=== PATIENT | female | born 1960 | race Caucasian/White ===

== ENCOUNTER 2024-09-22 11:04 | Emergency (ER) | payer OTHER ==
--- OUTSIDE RECORDS SUMMARY | 2024-09-22 11:09 | XMS REPORT | Continuity of Care Document ---
Author Name Unknown Address [address] [facility] [address] [place] [address] [facility] Address [address] 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 Name Role Phone MIGUEL STAUFFER Primary Care Physician RUDOLPH Stokes Attending Clinician Unavailable MIGUEL STAUFFER Attending Clinician Unavailab REGINO Arevalo Attending Clinician Unavailable REGINO ARENAS Attending Clinician Unavailable Regino Arenas MD Attending Clinician [phone] JOHNIE MONACO Attending Clinician Unavailable TRUDI ALLAN Attending Clinician UnavailGretta Rendon RN Attending Clinician [phone] DARLING ZAVALA Attending Clinician Unavailable Christine Collins NP Attending Clinician [phone] Darling Zavala MD Attending Clinician [phone] STEPHANIE OHARA Attending Clinician Unavailable STEPHANIE OHARA Attending Clinician Unavailable Stephanie Ohara NP Attending Clinician [phone] Attending Clinician Unavailable JASON REDD Attending Clinician UnavailBOONE Rojas Attending Clinician Unavailable Odalis Attending Clinician Unavailable JUS FARAH Attending Clinician Unavail able BIBI Attending Clinician Unavailable CLIFFORD Attending Clinician Unavailable DR BRYNN LINDA Attending Clinician Unavailable MELQUIADESMR LUU Attending Clinician UnavailGRACIA Castro Admitting Clinician Unavailable DARLING ZAVALA Admitting Clinician Unavailable Darling Zavala MD Admitting Clinician [phone] MARKMEY DSOUZAE Admitting Clinician Unavailable Odalis Admitting Clinician Unavailable ERICKSON_R Admitting Clinician Unavailable RAN_C Admitting Clinician Unavailable DR BRYNN LINDA Admitting Clinician Unavailable MELQUIADES, MR LUU Admitting Clinician Unavailramon e Payers Payer Name Policy Type Policy Number Effective Date Expirati on Date Source [employer] MP [facility] GOLD 4 [facility] ON/OFF 9 [id number] 2024 00:00:00 AEJODEE W/ KENIA WallsOO [id number] 2024 00:00:00 [facility] [id number] Problems Condition Name Condition Details Condition Category Status Onset Date Resolution Date Last Treatment Date Treating Clinician Comments Source Alcoholic cirrhosis of liver without ascites (multi HCC) Alcoholic cirrhosis of liver without ascites (multi HCC) Disease Active 2023-10 00:00: 00 [facility] Seybold - Externa l Chronic diastolic congestive heart failure (multi HCC) Chronic diastolic congestive heart failure (multi HCC) Disease Active 2023-10 00:00: 00 [facility]ia Seybold - Externa l Hospital discharge follow-up Hospital discharge follow-up Disease Active 2023-10 00:00: 00 [facility] Seybold - Externa l Alcohol use Alcohol use Disease Active 2023-10 00:00: 00 [facility] Seybold - Externa l Other chest pain Other chest pain Disease Active 2023-10 00:00: 00 [facility] Obesity (BMI 30-39.9) Obesity (BMI 30-39.9) Disease Active 2023-10 00:00: 00 [facility] Hypertensi ve emergency Hypertensi ve emergency Disease Active 2023-10 00:00: 00 [facility] Cigarette smoker Cigarette smoker Disease Active 2023-10 00:00: 00 [facility] Other hyperlipid emia Other hyperlipid emia Disease Active 2023-10 00:00: 00 [facility] Type 2 diabetes mellitus without complicati on, without long-term current use of insulin Type 2 diabetes mellitus without complicati on, without long-term current use of insulin Disease Active 2023-10 00:00: 00 [facility] Elevated blood pressure reading Elevated blood pressure reading Disease Active 2023-10 00:00: 00 [facility] Elevated d-dimer Elevated d-dimer Disease Active 2023-10 00:00: 00 [facility] Shortness of breath Shortness of breath Disease Active 2023-10 00:00: 00 [facility] Acute congestive heart failure, unspecifie d heart failure type Acute congestive heart failure, unspecifie d heart failure type Disease Active 2023-10 00:00: 00 [facility] Encounter for screening for human papillomav irus (HPV) Encounter for screening for human papillomav irus (HPV) Disease Active 02-11 00:00: 00 [facility] Burton - Externa brooks Immunodefi ciency due to poorly controlled type 2 diabetes (CMS/HCC) (multi HCC) Immunodefi ciency due to poorly controlled type 2 diabetes (CMS/HCC) (multi HCC) Disease Active 02-11 00:00: 00 [facility] Burton - Externa [facility] Type 2 diabetes mellitus with hyperlipid emia (multi HCC) Type 2 diabetes mellitus with hyperlipid emia (multi HCC) Disease Active 02-05 00:00: 00 [facility]ia Holmold - Externa brooks Primary hypertensi on Primary hypertensi on Disease Active 01-01 00:00: 00 [facility]ia Senayeold - Externa l Hyperlipid emia Hyperlipid emia Disease Active 01-01 00:00: 00 [facility]ia Holmold - Externa brooks Type 2 diabetes mellitus without complicati on, without long-term current use of insulin (multi HCC) Type 2 diabetes mellitus without complicati on, without long-term current use of insulin (multi HCC) Disease Active 01-01 00:00: 00 [facility] guy Class 1 obesity due to excess calories without serious comorbidit y with body mass index (BMI) of 31.0 to 31.9 in adult Class 1 obesity due to excess calories without serious comorbidit y with body mass index (BMI) of 31.0 to 31.9 in adult Disease Active 01-01 00:00: 00 Kenia Josephine guy Diabetes mellitus Diabetes Mellitus Problem Active 02-08 00:00: 00 [facility] Hypertensi ve disorder Hypertensi ve Disorder Problem Active 02-08 00:00: 00 [facility] History of hepatitis C History of Hepatitis C Problem Active 02-08 00:00: 00 [facility] Mixed hyperlipid emia Mixed Hyperlipid emia Problem Active 2021-10 00:00: 00 [facility] Body mass index 30+ - obesity Body Mass Index 30+ - Obesity Problem Active 2021-10 00:00: 00 [facility] Alcoholism Alcoholism Problem Active 2021-10 00:00: 00 [facility] Smoker Smoker Problem Active 2021-10 00:00: 00 [facility] Hypertensi ve disorder Hypertensi ve Disorder Problem Active 2021-10 00:00: 00 [facility] Psoriasis Psoriasis Problem Active 2021-10 00:00: 00 [facility] Arthritis Arthritis Problem Active 2021-10 00:00: 00 [facility] Multiple joint pain Multiple Joint Pain Problem Active 2021-10 00:00: 00 [facility] Misused drugs in past Misused Drugs in past Problem Active 2021-10 00:00: 00 [facility] Chronic insomnia Chronic Insomnia Problem Active 2021-10 00:00: 00 [facility] History of cocaine abuse History of Cocaine Abuse Problem Active 2021-10 00:00: 00 [facility] Chronic hepatitis C Chronic Hepatitis C Problem Active 2021-10 00:00: 00 [facility] Diabetes mellitus Diabetes Mellitus Problem Active 2021-10 00:00: 00 [facility] Tobacco use Tobacco use Disease Active [facility] Burton - Externa l Allergies, Adverse Reactions, Alerts Allergy Name Allergy Type Status Severity Reaction(s) Onset Date Inactive Date Treating Clinician Comments Source NO KNOWN ALLERGIE S Drug Class Active [facility] No Known Drug Allergie s DA Active [facility] Social History Social Habit Start Date Stop Date Quantity Comments Source History of tobacco use Passive smoker [facility] Kenia Burton - External Cigarettes smoked current (pack per day) - Reported 2024-08-22 00:00:00 2024-08-22 00:00:00 [facility] Cigarette pack-years 2024-08-22 00:00:00 2024-08-22 00:00:00 [facility] Alcoholic beverage intake 2024-08-22 00:00:00 2024-08-22 00:00:00 .43 /d [facility] History of Social function 2024-08-22 00:00:00 2024-08-22 00:00:00 [facility] Tobacco use and exposure 2024-02-12 00:00:00 2024-02-12 00:00:00 Smokeless tobacco non-user Kenia Burton - External Alcohol intake 2024-01-02 00:00:00 2024-01-02 00:00:00 .29 /d Kenia Burton - External Sex 2023-10-16 22:18:01 2023-10-16 22:18:01 Female (finding) Kenia Burton - External Sex assigned at 1960 00:00:00 1960 00:00:00 [facility] Smoking Status Start Date Stop Date Source Heavy Tobacco Smoker [facility] Tobacco smoking consumption unknown [facility] Smokes tobacco daily 2024-02-12 00:00:00 Kenia Burton - External Medications Ordered Medication Name Filled Medication Name Start Date Stop Date Current Medication? Ordering Clinician Indication Dosage Frequency Signature (SIG) Comments Components Source cefTRIAXone (ROCEPHIN) 1,000 mg in water for injection, sterile 10 mL IV Push 2023-10 22:00: 00 09-15 22:19 :00 No 1000mg 1,000 mg, Intravenou s, ONCE, 1 dose, On Sat09/15/24 at 1600, 10 mL, Reason for Anti-Infec tive: Documented Infection, Documented Infection Site: Respirator y, Duration of Therapy: Once (ED) [facility] azithromyci n (ZITHROMAX Z-ERNST) 250 mg tablet 2023-10 00:00: 00 Yes [id number] Take 500 mg on day 1 then take 250 mg on days 2-5 [facility] ondansetron 4 mg disintegrat ing tablet 2023-10 00:00: 00 Yes [id number] 4mg Take 1 tablet by mouth every 12 (twelve) hours as needed for Nausea and Vomiting (N/V). [facility] cefdinir 300 mg capsule 2023-10 00:00: 00 09-26 05:59 :00 Yes [id number] 300mg Take 1 capsule by mouth in the morning and 1 capsule in the evening. Do all this for 10 days. [facility] acetaminoph en-codeine 300-30 mg tablet 2023-10 00:00: 00 09-23 05:59 :00 Yes [id number] 1{tbl} Take 1 tablet by mouth every 4 (four) hours as needed for Pain (scale 7-10) (cough, body aches) for up to 7 days. Indication s: acute pain, severe cough, body aches [facility] Cetirizine (ZyrTEC Allergy) 10 MG oral Tablet 2023-10 11:19: 19 Yes 75 10mg QD Take 1 tablet (10 mg total) by mouth daily. Indication s: Hayfever [facility] Burton - Externa l Amlodipine Besylate (NORVASC) 5 MG oral Tablet 2023-10 00:00: 00 Yes [id number] 5mg QD Take 1 tablet (5 mg total) by mouth daily. [facility]ia guy Carvedilol 12.5 MG oral Tablet 2023-10 00:00: 00 Yes [id number] 12.5mg QD Take 1 tablet (12.5 mg total) by mouth every morning and evening take with meals. [facility]ia guy Atorvastati n Calcium 10 MG oral Tablet 2023-10 00:00: 00 Yes [id number] 10mg Take 1 tablet (10 mg total) by mouth at bedtime. [facility] guy Amlodipine Besylate (NORVASC) 5 MG oral Tablet 2023-10 00:00: 00 09-07 00:00 :00 No 5mg QD Take 1 tablet (5 mg total) by mouth daily. [facility] guy amLODIPine (NORVASC) tablet 5 mg 2023-10 15:30: 00 Yes 5mg 5 mg, Oral, DAILY, First dose on 08/23/24 at 0930, Until Discontinu ed, Routine [facility] carvediloL (COREG) tablet 12.5 mg 2023-10 14:00: 00 Yes 12.5mg 12.5 mg, Oral, BID MEALS, First dose (after last modificati on) on 08/23/24 at 0800, Until Discontinu ed, Routine [facility] losartan 100 mg tablet 2023-10 12:29: 03 Yes 100mg Take 1 tablet by mouth in the morning. [facility] cetirizine HCl (ZYRTEC ORAL) 2023-10 12:29: 03 Yes Take by mouth. [facility] metFORMIN 1,000 mg 24 hr tablet 2023-10 12:29: 03 Yes 1000mg Take 1 tablet by mouth in the morning and 1 tablet in the evening. [facility] traZODone 100 mg tablet 2023-10 12:29: 03 Yes 100mg Take 1 tablet by mouth at bedtime. [facility] Fenofibrate 40 mg Tab 2023-10 11:45: 21 08-23 00:00 :00 No Take by mouth. [facility] hydralAZINE (APRESOLINE ) injection 10 mg 2023-10 09:30: 03 08-23 18:29 :03 No 10mg 10 mg, Slow IV Push, Q4HPRN, Starting on 08/23/24 at 0330, Until 08/23/24 at 1229, STAT, DBP=>100; SBP=>160 [facility] traZODone (DESYREL) tablet 100 mg 2023-10 03:00: 00 08-23 18:29 :03 No 100mg 100 mg, Oral, QHS, First dose on 08/22/24 at 2100, Until Discontinu ed, Routine [facility] nicotine (NICODERM) 7 mg/24 hr patch 1 Patch 2023-10 02:30: 00 08-23 18:29 :03 No 1{patch } 1 Patch, Topical, Administer over 24 Hours, Q24H, First dose on 08/22/24 at 2030, Until Discontinu ed, Routine [facility] Carvedilol 12.5 MG oral Tablet 2023-10 00:00: 00 09-07 00:00 :00 No 12.5mg Take 1 tablet (12.5 mg total) by mouth in the morning and 1 tablet (12.5 mg total) in the evening. Take with meals. [facility]ia guy Atorvastati n Calcium 40 MG oral Tablet 2023-10 00:00: 00 09-07 00:00 :00 No 40mg Take 1 tablet (40 mg total) by mouth at bedtime. [facility] guy aspirin chewable tablet 81 mg 2023-10 15:00: 00 08-23 18:29 :03 No 81mg 81 mg, Oral, DAILY, First dose on 08/22/24 at 0900, Until Discontinu ed, Routine [facility] losartan (COZAAR) tablet 100 mg 2023-10 15:00: 00 08-23 18:29 :03 No 100mg 100 mg, Oral, DAILY, First dose on 08/22/24 at 0900, Until Discontinu ed, Routine [facility] fenofibrate micronized (LOFIBRA) capsule 67 mg 2023-10 15:00: 00 08-23 18:29 :03 No 67mg 67 mg, Oral, DAILY, First dose on 08/22/24 at 0900, Until Discontinu ed [facility] enoxaparin (LOVENOX) injection 40 mg 2023-10 15:00: 00 08-23 18:29 :03 No 40mg 40 mg, Subcutaneo us, DAILY, First dose on Sat08/22/24 at 0900, Until Discontinu ed, Routine [facility] carvediloL (COREG) tablet 6.25 mg 2023-10 14:00: 00 08-23 01:38 :19 No 6.25mg 6.25 mg, Oral, BID MEALS, First dose on 08/22/24 at 0800, Until Discontinu ed, Routine [facility] meloxicam (MOBIC) tablet 7.5 mg 2023-10 06:40: 33 08-23 18:29 :03 No 7.5mg [facility] Sliding Scale Insulin - Lispro (HumaLOG) 2023-10 03:00: 00 08-23 18:29 :03 No Subcutaneo us, TID MEALS+HS, First dose on Sat08/21/24 at 2100, Until Discontinu ed, Routine [facility] glucagon HCL injection 1 mg 2023-10 01:28: 02 08-23 18:29 :03 No 1mg [facility] dextrose 50 % in water (D50W) injection 25 mL 2023-10 01:28: 02 08-23 18:29 :03 No 25mL [facility] ondansetron (ZOFRAN (PF)) injection 4 mg 2023-10 01:27: 56 08-23 18:29 :03 No 4mg [facility] nitroglycer in (NITROSTAT) sublingual tablet 0.4 mg 2023-10 01:27: 53 08-23 18:29 :03 No .4mg 0.4 mg, Sublingual , Q5MIN PRN, Starting on Sat08/21/24 at 1927, Until Sat08/23/24 at 1229, Routine, Chest pain [facility] HYDROcodone -acetaminop hen (NORCO 5) tablet 1 tablet 2023-10 01:27: 44 08-23 18:29 :03 No 1{tbl} 1 tablet, Oral, Q6HPRN, Starting on Sat08/21/24 at 1927, Until Sat08/23/24 at 1229, Routine, Pain (scale 4-6) [facility] acetaminoph en (TYLENOL) tablet 650 mg 2023-10 01:27: 39 08-23 18:29 :03 No 650mg 650 mg, Oral, Q6HPRN, Starting on Sat08/21/24 at 1927, Until Sat08/23/24 at 1229, Routine, Pain (scale 1-3), Temp > 38 C [facility] iopamidol (ISOVUE 370-500 mL) injection 75 mL 2023-10 01:15: 00 08-22 01:15 :00 No [id number] 75mL 75 mL, Intravenou s, ONCE, 1 dose, On Sat08/21/24 at 1915, Routine [facility] nitroglycer in (NITROL) 2 % ointment 0.5 Inch 2023-10 00:00: 00 08-22 00:27 :00 No .5[in_u s] 0.5 Inch, Transderma l (Apply To Skin), ONCE, 1 dose, On Sat08/21/24 at 1800, KUNAL [facility] ondansetron (ZOFRAN (PF)) injection 4 mg 2023-10 00:00: 00 08-22 00:27 :00 No 4mg 4 mg, Slow IV Push, ONCE, 1 dose, On Sat08/21/24 at 1800, Administer over 2-5 Minutes, 2 mL [facility] morpHINE (4 mg/mL) injection 4 mg 2023-10 00:00: 00 08-22 00:27 :00 No 4mg 4 mg, Slow IV Push, ONCE, 1 dose, On Sat08/21/24 at 1800, STAT [facility] aspirin tablet 325 mg 2023-10 23:45: 00 08-21 23:49 :00 No 325mg 325 mg, Oral, ONCE, 1 dose, On Sat08/21/24 at 1745, STAT [facility] magnesium sulfate in water 2 gram/50 mL (4 %) infusion 2 g 2023-10 03:45: 00 08-20 15:44 :00 Yes 2g 2 g, IV Piggyback, Administer over 60 Minutes, ONCE, 1 dose, On Sat08/19/24 at 2145, Routine [facility] ondansetron (ZOFRAN (PF)) injection 4 mg 2023-10 03:00: 00 08-20 03:29 :00 No 4mg 4 mg, Slow IV Push, ONCE, 1 dose, On Sat08/19/24 at 2100, Administer over 2-5 Minutes, 2 mL [facility] diphenhydrA MINE (BENADRYL) injection 25 mg 2023-10 03:00: 00 08-20 03:28 :00 No 25mg 25 mg, Slow IV Push, ONCE, 1 dose, On Sat08/19/24 at 2100, STAT [facility] dexamethaso ne sod phos PF injection 10 mg 2023-10 03:00: 00 08-20 03:26 :00 No 10mg 10 mg, Slow IV Push, ONCE, 1 dose, On Sat08/19/24 at 2100, 1 mL [facility] ketorolac (TORADOL) injection 30 mg 2023-10 02:45: 00 08-20 02:01 :00 No 30mg 30 mg, Slow IV Push, ONCE, 1 dose, On Sat08/19/24 at 2045, Routine [facility] carvediloL (COREG) tablet 3.125 mg 2023-10 02:30: 00 08-20 02:06 :00 No 3.125mg 3.125 mg, Oral, ONCE, 1 dose, On Sat08/19/24 at 2030, Routine [facility] Losartan Potassium (COZAAR) 100 MG oral Tablet 2023-10 00:00: 00 Yes [id number] 100mg QD Take 1 tablet (100 mg total) by mouth daily. [facility] guy Carvedilol 3.125 MG oral Tablet 2023-10 00:00: 00 09-07 00:00 :00 No 3.125mg QD Take 1 tablet (3.125 mg total) by mouth every morning and evening take with meals. [facility] guy carvediloL 3.125 mg tablet 2023-10 00:00: 00 08-23 00:00 :00 No [id number] 3.125mg Take 1 tablet by mouth in the morning and 1 tablet in the evening. Take with meals. Do all this for 30 days. [facility] Cetirizine (ZyrTEC Allergy) 10 MG oral Tablet 2023-10 09:43: 41 Yes 75 10mg QD Take 1 tablet (10 mg total) by mouth daily. Indication s: Hayfever [facility] guy Atorvastati n Calcium 10 MG oral Tablet 2023-10 09:12: 28 08-17 00:00 :00 No [id number] 10mg QD Take 1 tablet (10 mg total) by mouth daily. [facility] guy Losartan Potassium (COZAAR) 50 MG oral Tablet 2023-10 00:00: 00 Yes [id number] 50mg QD Take 1 tablet (50 mg total) by mouth daily. [facility] guy FLUTICASONE PROPIONATE, NASAL, 50 MCG/ACT nasal Suspension 2023-10 00:00: 00 Yes [id number] 50ug QD Use 1 spray (50 mcg total) in each nostril daily. [facility] guy predniSONE (DELTASONE) 10 MG oral tablet 2023-10 00:00: 00 09-07 00:00 :00 No [id number] 10mg QD Take 1 tablet (10 mg total) by mouth daily. [facility] guy Meloxicam 15 MG oral Tablet 2023-10 00:00: 00 Yes [id number] 15mg QD Take 1 tablet (15 mg total) by mouth daily as needed for pain. [facility] guy Trazodone HCl 50 MG oral Tablet 2023-10 00:00: 00 Yes [id number] 50mg QD Take 1 tablet (50 mg total) by mouth nightly. [facility] guy Meloxicam 15 MG oral Tablet 2023-10 00:00: 00 Yes [id number] 15mg QD Take 1 tablet (15 mg total) by mouth daily as needed for pain. [facility] guy FENOFIBRATE MICRONIZED 54 MG oral Tablet 2023-10 00:00: 00 09-07 00:00 :00 No [id number] 54mg QD Take 1 tablet (54 mg total) by mouth daily. [facility] guy Liraglutide 18 MG/3ML subcutaneou s Solution Pen-injecto r 808 00:00: 00 08-17 00:00 :00 No [id number] .6mg QD Inject 0.6 mg into the skin daily After one week at the 0.6 mg once daily dosage, increase the dosage to 1.2 mg injected subcutaneo usly once daily.. [facility] guy Meloxicam 15 MG oral Tablet 05-06 15:36: 30 05-06 00:00 :00 No 15mg QD Take 1 tablet (15 mg total) by mouth daily. [facility] guy Atorvastati n Calcium 10 MG oral Tablet 05-06 15:14: 56 Yes [id number] 10mg QD Take 1 tablet (10 mg total) by mouth daily. [facility] guy Meloxicam 15 MG oral Tablet 05-06 00:00: 00 Yes [id number] 15mg QD Take 1 tablet (15 mg total) by mouth daily. [facility] guy Trulicity 1.5 MG/0.5ML subcutaneou s Solution Pen-injecto r 05-06 00:00: 00 Yes [id number] 1.5mg Q1W Inject 1.5 mg into the skin once a week. [facility] guy Naproxen 500 MG oral Tablet 04-16 00:00: 00 05-06 00:00 :00 No 500mg Q.5D Take 1 tablet (500 mg total) by mouth 2 times daily. [facility] guy Metformin HCl ER 500 MG oral TABLET SR 24 HR 03-27 00:00: 00 Yes [id number] 1000mg Q.5D Take 2 tablets (1,000 mg total) by mouth 2 times daily Please take with food. [facility] guy Metformin HCl ER 500 MG oral TABLET SR 24 HR 03-27 00:00: 00 Yes [id number] 1000mg Q.5D Take 2 tablets (1,000 mg total) by mouth 2 times daily Please take with food. [facility] guy Metformin HCl ER 500 MG oral TABLET SR 24 HR 03-27 00:00: 00 Yes [id number] 1000mg Q.5D Take 2 tablets (1,000 mg total) by mouth 2 times daily Please take with food. [facility] guy Lisinopril 20 MG oral Tablet 03-27 00:00: 00 08-17 00:00 :00 No [id number] 20mg QD Take 1 tablet (20 mg total) by mouth daily. [facility] guy Trazodone HCl 50 MG oral Tablet 02-14 00:00: 00 Yes TAKE 1 TABLET BY MOUTH NIGHTLY. NO DRIVING WHILE ON THIS MEDICATION . [facility] guy Nicotine 7 MG/24HR transdermal PATCH 24 HR 02-11 00:00: 00 05-06 00:00 :00 No [id number] 1{patch } Place 1 patch onto the skin every 24 hours. [facility] guy Continuous Blood Gluc Sensor ([employer] G7 Sensor) does not apply Misc 01-19 00:00: 00 Yes [id number] Check blood sugars twice a day. [facility] guy Metformin HCl ER 500 MG oral TABLET SR 24 HR 01-15 00:00: 00 Yes [id number] 1000mg Take 2 tablets (1,000 mg total) by mouth 2 times daily Please take with food. [facility] guy Trulicity 0.75 MG/0.5ML subcutaneou s Solution Pen-injecto r 01-15 00:00: 00 05-06 00:00 :00 No [id number] .75mg Q1W Inject 0.75 mg into the skin once a week. [facility] guy Trazodone HCl 50 MG oral Tablet 01-15 00:00: 00 02-11 00:00 :00 No [id number] 50mg Take 1 tablet (50 mg total) by mouth nightly No driving on medication . [facility] guy FENOFIBRATE MICRONIZED 54 MG oral Tablet 01-07 00:00: 00 Yes [id number] 54mg QD Take 1 tablet (54 mg total) by mouth daily. [facility] guy Metformin HCl ER 500 MG oral TABLET SR 24 HR 01-01 08:22: 37 01-01 00:00 :00 No 500mg Take 1 tablet (500 mg total) by mouth daily (with breakfast) . [facility] guy Lisinopril 20 MG oral Tablet 01-01 08:22: 37 01-01 00:00 :00 No 20mg Take 1 tablet (20 mg total) by mouth daily. [facility] guy Meloxicam 15 MG oral Tablet 01-01 08:03: 14 Yes 15mg Take 1 tablet (15 mg total) by mouth daily. [facility] guy Atorvastati n Calcium 10 MG oral Tablet 01-01 08:03: 14 Yes [id number] 10mg Take 1 tablet (10 mg total) by mouth daily. [facility] guy Metformin HCl ER 500 MG oral TABLET SR 24 HR 01-01 00:00: 00 Yes [id number] 500mg Take 1 tablet (500 mg total) by mouth daily (with breakfast) . [facility] guy Lisinopril 20 MG oral Tablet 01-01 00:00: 00 Yes [id number] 20mg Take 1 tablet (20 mg total) by mouth daily. [facility] guy Clobetasol Propionate 0.05 % apply externally Ointment 01-01 00:00: 00 01-16 04:59 :00 No [id number] 1{appli cation} Apply 1 Applicatio n topically 2 times daily for 14 days. [facility] guy clobetasol 0.05 % topical cream APPLY A THIN LAYER TO THE AFFECTED AREA(S) TWO TIMES DAILY clobetasol 0.05 % topical cream APPLY A THIN LAYER TO THE AFFECTED AREA(S) TWO TIMES DAILY No clobetasol 0.05 % topical cream APPLY A THIN LAYER TO THE AFFECTED AREA(S) TWO TIMES DAILY [facility] nifedipine ER 90 mg tablet,exte nded release Take 1 tablet every day by oral route. nifedipine ER 90 mg tablet,exte nded release Take 1 tablet every day by oral route. No nifedipine ER 90 mg tablet,ext ended release Take 1 tablet every day by oral route. [facility] clobetasol 0.05 % topical cream APPLY A THIN LAYER TO THE AFFECTED AREA(S) TWO TIMES DAILY clobetasol 0.05 % topical cream APPLY A THIN LAYER TO THE AFFECTED AREA(S) TWO TIMES DAILY No clobetasol 0.05 % topical cream APPLY A THIN LAYER TO THE AFFECTED AREA(S) TWO TIMES DAILY [facility] nifedipine ER 90 mg tablet,exte nded release Take 1 tablet every day by oral route. nifedipine ER 90 mg tablet,exte nded release Take 1 tablet every day by oral route. No nifedipine ER 90 mg tablet,ext ended release Take 1 tablet every day by oral route. [facility] clobetasol 0.05 % topical cream APPLY A THIN LAYER TO THE AFFECTED AREA(S) TWO TIMES DAILY clobetasol 0.05 % topical cream APPLY A THIN LAYER TO THE AFFECTED AREA(S) TWO TIMES DAILY No clobetasol 0.05 % topical cream APPLY A THIN LAYER TO THE AFFECTED AREA(S) TWO TIMES DAILY [facility] nifedipine ER 90 mg tablet,exte nded release Take 1 tablet by mouth once daily nifedipine ER 90 mg tablet,exte nded release Take 1 tablet by mouth once daily No nifedipine ER 90 mg tablet,ext ended release Take 1 tablet by mouth once daily [facility] sulfamethox azole 800 mg-trimetho prim 160 mg tablet Take 1 tablet every 12 hours by oral route for 7 days. sulfamethox azole 800 mg-trimetho prim 160 mg tablet Take 1 tablet every 12 hours by oral route for 7 days. No 1 Q12H sulfametho xazole 800 mg-trimeth oprim 160 mg tablet Take 1 tablet every 12 hours by oral route for 7 days. [facility] clobetasol 0.05 % topical cream APPLY A THIN LAYER TO THE AFFECTED AREA(S) TWO TIMES DAILY clobetasol 0.05 % topical cream APPLY A THIN LAYER TO THE AFFECTED AREA(S) TWO TIMES DAILY No clobetasol 0.05 % topical cream APPLY A THIN LAYER TO THE AFFECTED AREA(S) TWO TIMES DAILY [facility] nifedipine ER 90 mg tablet,exte nded release Take 1 tablet by mouth once daily nifedipine ER 90 mg tablet,exte nded release Take 1 tablet by mouth once daily No nifedipine ER 90 mg tablet,ext ended release Take 1 tablet by mouth once daily [facility] sulfamethox azole 800 mg-trimetho prim 160 mg tablet Take 1 tablet every 12 hours by oral route for 7 days. sulfamethox azole 800 mg-trimetho prim 160 mg tablet Take 1 tablet every 12 hours by oral route for 7 days. No 1 Q12H sulfametho xazole 800 mg-trimeth oprim 160 mg tablet Take 1 tablet every 12 hours by oral route for 7 days. [facility] atorvastati n 10 mg tablet Take 1 tablet every day by oral route. atorvastati n 10 mg tablet Take 1 tablet every day by oral route. No atorvastat in 10 mg tablet Take 1 tablet every day by oral route. [facility] GaviLyte-G 236 gram-22.74 gram-6.74 gram-5.86 gram oral solution Take 2000 mL twice a day by oral route for 1 day. GaviLyte-G 236 gram-22.74 gram-6.74 gram-5.86 gram oral solution Take 2000 mL twice a day by oral route for 1 day. No 2000mL BID GaviLyte-G 236 gram-22.74 gram-6.74 gram-5.86 gram oral solution Take 2000 mL twice a day by oral route for 1 day. [facility] clobetasol 0.05 % topical cream APPLY A THIN LAYER TO THE AFFECTED AREA(S) TWO TIMES DAILY clobetasol 0.05 % topical cream APPLY A THIN LAYER TO THE AFFECTED AREA(S) TWO TIMES DAILY No clobetasol 0.05 % topical cream APPLY A THIN LAYER TO THE AFFECTED AREA(S) TWO TIMES DAILY [facility] GaviLyte-G 236 gram-22.74 gram-6.74 gram-5.86 gram oral solution TAKE 2000 ML BY MOUTH DIRECTED TWICE DAILY FOR 1 DAY GaviLyte-G 236 gram-22.74 gram-6.74 gram-5.86 gram oral solution TAKE 2000 ML BY MOUTH DIRECTED TWICE DAILY FOR 1 DAY No GaviLyte-G 236 gram-22.74 gram-6.74 gram-5.86 gram oral solution TAKE 2000 ML BY MOUTH DIRECTED TWICE DAILY FOR 1 DAY [facility] lisinopril 20 mg tablet Take 1 tablet every day by oral route. lisinopril 20 mg tablet Take 1 tablet every day by oral route. No 1 Q1D lisinopril 20 mg tablet Take 1 tablet every day by oral route. [facility] metformin ER 500 mg tablet,exte nded release 24 hr Take 1 tablet twice a day by oral route. metformin ER 500 mg tablet,exte nded release 24 hr Take 1 tablet twice a day by oral route. No 1 BID metformin ER 500 mg tablet,ext ended release 24 hr Take 1 tablet twice a day by oral route. [facility] nifedipine ER 90 mg tablet,exte nded release TAKE 1 TABLET BY MOUTH ONCE DAILY nifedipine ER 90 mg tablet,exte nded release TAKE 1 TABLET BY MOUTH ONCE DAILY No nifedipine ER 90 mg tablet,ext ended release TAKE 1 TABLET BY MOUTH ONCE DAILY [facility] Chantix Starting Month Box 0.5 mg (11)-1 mg (42) tablets in dose pack As directed on Dose-Pack Chantix Starting Month Box 0.5 mg (11)-1 mg (42) tablets in dose pack As directed on Dose-Pack No Chantix Starting Month Box 0.5 mg (11)-1 mg (42) tablets in dose pack As directed on Dose-Pack [facility] clobetasol 0.05 % topical cream APPLY A THIN LAYER TO THE AFFECTED AREA(S) BY TOPICAL ROUTE 2 TIMES PER DAY clobetasol 0.05 % topical cream APPLY A THIN LAYER TO THE AFFECTED AREA(S) BY TOPICAL ROUTE 2 TIMES PER DAY No clobetasol 0.05 % topical cream APPLY A THIN LAYER TO THE AFFECTED AREA(S) BY TOPICAL ROUTE 2 TIMES PER DAY [facility] meloxicam meloxicam No meloxicam [facility] meloxicam 15 mg tablet Take 1 tablet every day by oral route. meloxicam 15 mg tablet Take 1 tablet every day by oral route. No 1 Q1D meloxicam 15 mg tablet Take 1 tablet every day by oral route. [facility] nifedipine ER 90 mg tablet,exte nded release Take 1 tablet every day by oral route. nifedipine ER 90 mg tablet,exte nded release Take 1 tablet every day by oral route. No 1 Q1D nifedipine ER 90 mg tablet,ext ended release Take 1 tablet every day by oral route. [facility] atorvastati n 10 mg tablet Take 1 tablet every day by oral route. atorvastati n 10 mg tablet Take 1 tablet every day by oral route. No 1 Q1D atorvastat in 10 mg tablet Take 1 tablet every day by oral route. [facility] Chantix Starting Month Box 0.5 mg (11)-1 mg (42) tablets in dose pack As directed on Dose-Pack Chantix Starting Month Box 0.5 mg (11)-1 mg (42) tablets in dose pack As directed on Dose-Pack No Chantix Starting Month Box 0.5 mg (11)-1 mg (42) tablets in dose pack As directed on Dose-Pack [facility] clobetasol 0.05 % topical cream APPLY A THIN LAYER TO THE AFFECTED AREA(S) TWO TIMES DAILY clobetasol 0.05 % topical cream APPLY A THIN LAYER TO THE AFFECTED AREA(S) TWO TIMES DAILY No clobetasol 0.05 % topical cream APPLY A THIN LAYER TO THE AFFECTED AREA(S) TWO TIMES DAILY [facility] meloxicam 15 mg tablet Take 1 tablet every day by oral route. meloxicam 15 mg tablet Take 1 tablet every day by oral route. No meloxicam 15 mg tablet Take 1 tablet every day by oral route. [facility] metformin ER 500 mg tablet,exte nded release 24 hr Take 1 tablet twice a day by oral route. metformin ER 500 mg tablet,exte nded release 24 hr Take 1 tablet twice a day by oral route. No 1 BID metformin ER 500 mg tablet,ext ended release 24 hr Take 1 tablet twice a day by oral route. [facility] nifedipine ER 90 mg tablet,exte nded release Take 1 tablet every day by oral route. nifedipine ER 90 mg tablet,exte nded release Take 1 tablet every day by oral route. No nifedipine ER 90 mg tablet,ext ended release Take 1 tablet every day by oral route. [facility] metformin metformin No metformin [facility] Program atorvastati n 10 mg tablet Take 1 tablet every day by oral route. atorvastati n 10 mg tablet Take 1 tablet every day by oral route. No atorvastat in 10 mg tablet Take 1 tablet every day by oral route. [facility] clobetasol 0.05 % topical cream APPLY A THIN LAYER TO THE AFFECTED AREA(S) TWO TIMES DAILY clobetasol 0.05 % topical cream APPLY A THIN LAYER TO THE AFFECTED AREA(S) TWO TIMES DAILY No clobetasol 0.05 % topical cream APPLY A THIN LAYER TO THE AFFECTED AREA(S) TWO TIMES DAILY [facility] meloxicam 15 mg tablet Take 1 tablet every day by oral route. meloxicam 15 mg tablet Take 1 tablet every day by oral route. No meloxicam 15 mg tablet Take 1 tablet every day by oral route. [facility] nifedipine ER 90 mg tablet,exte nded release Take 1 tablet every day by oral route. nifedipine ER 90 mg tablet,exte nded release Take 1 tablet every day by oral route. No nifedipine ER 90 mg tablet,ext ended release Take 1 tablet every day by oral route. [facility] nifedipine nifedipine No nifedipine [facility] Program Immunizations Ordered Immunization Name Filled Immunization Name Date Status Comments Source SARS-COV-2 COVID-19 PFIZER VACCINE 2020-12-20 00:00:00 Completed [facility] SARS-COV-2 COVID-19 PFIZER VACCINE 2020-11-29 00:00:00 Completed [facility] Influenza Virus Vaccine, Quad, Egg Free Unknown Completed Kenia Seybold - External Influenza Virus Vaccine, Quad, Egg Free Unknown Completed Kenia Seybold - External Influenza Virus Vaccine, Quad, Egg Free Unknown Completed Kenia Seybold - External Influenza Virus Vaccine, Quad, Egg Free Unknown Completed Kenia Seybold - External Influenza Virus Vaccine, Quad, Egg Free Unknown Completed Kenia Seybold - External Vital Signs Vital Name Observation Time Observation Value Comments S skinny Heart rate 2024-09-15 22:08:00 85 /min [facility] Respiratory rate 2024-09-15 22:08:00 18 /min [facility] Oxygen saturation in Arterial blood by Pulse oximetry 2024-09-15 22:08:00 98 /min [facility] Systolic blood pressure 2024-09-15 21:39:00 181 mm[Hg] [facility] Diastolic blood pressure 2024-09-15 21:39:00 81 mm[Hg] [facility] Body temperature 2024-09-15 19:53:00 37.11 Heaven [facility] Body height 2024-09-15 19:53:00 157.5 cm [facility] Body weight 2024-09-15 19:53:00 86.864 kg [facility] BMI 2024-09-15 19:53:00 35.03 kg/m2 [facility] Systolic blood pressure 2024-09-07 17:11:00 136 mm[Hg] Kenia Seybo ld - External Diastolic blood pressure 2024-09-07 17:11:00 62 mm[Hg] Kenia Seybo ld - External Heart rate 2024-09-07 17:11:00 78 /min Kel y Seybold - External Body temperature 2024-09-07 17:11:00 36.67 Heaven Kenia Seybold - External Respiratory rate 2024-09-07 17:11:00 18 /min Kenia Mahoneyybold - External Body height 2024-09-07 17:11:00 157.5 cm Tierney ey Seybold - External Body weight 2024-09-07 17:11:00 86.637 kg Tierney ey Seybold - External BMI 2024-09-07 17:11:00 34.93 kg/m2 Tierney ey Seybold - External Oxygen saturation in Arterial blood by Pulse oximetry 2024-09-07 17:11:00 98 /min Kenia Mahoneyybo ld - External Systolic blood pressure 2024-08-23 17:13:00 154 mm[Hg] [facility] Diastolic blood pressure 2024-08-23 17:13:00 84 mm[Hg] [facility] Heart rate 2024-08-23 17:13:00 74 /min [facility] Body temperature 2024-08-23 17:13:00 36.06 Heaven [facility] Respiratory rate 2024-08-23 17:13:00 16 /min [facility] Oxygen saturation in Arterial blood by Pulse oximetry 2024-08-23 17:13:00 96 /min [facility] Body weight 2024-08-23 09:20:00 84.46 kg [facility] BMI 2024-08-23 09:20:00 33.51 kg/m2 [facility] Body height 2024-08-22 03:00:00 158.8 cm [facility] Systolic blood pressure 2024-08-20 04:20:00 170 mm[Hg] [facility] Diastolic blood pressure 2024-08-20 04:20:00 80 mm[Hg] [facility] Heart rate 2024-08-20 04:20:00 79 /min [facility] Body temperature 2024-08-20 04:20:00 36.67 Heaven [facility] Respiratory rate 2024-08-20 04:20:00 20 /min [facility] Oxygen saturation in Arterial blood by Pulse oximetry 2024-08-20 04:20:00 96 /min [facility] Body height 2024-08-20 00:32:00 157.5 cm [facility] Body weight 2024-08-20 00:32:00 83.915 kg [facility] BMI 2024-08-20 00:32:00 33.84 kg/m2 [facility] Systolic blood pressure 2024-08-17 15:13:00 160 mm[Hg] Kenia Seybo ld - External Diastolic blood pressure 2024-08-17 15:13:00 90 mm[Hg] Kenia Seybo ld - External Heart rate 2024-08-17 15:06:00 86 /min Kelse y Seybold - External Body temperature 2024-08-17 15:06:00 36.33 Heaven Kenia Seybold - External Respiratory rate 2024-08-17 15:06:00 18 /min Kenia Seybold - External Body height 2024-08-17 15:06:00 157.5 cm Tierney ey Seybold - External Body weight 2024-08-17 15:06:00 84.369 kg Tierney ey Seybold - External BMI 2024-08-17 15:06:00 34.02 kg/m2 Tierney ey Seybold - External Oxygen saturation in Arterial blood by Pulse oximetry 2024-08-17 15:06:00 98 /min Kenia Seybo ld - External Body weight 2024-05-06 20:09:00 83.008 kg Tierney ey Seybold - External BMI 2024-05-06 20:09:00 33.47 kg/m2 Tierney ey Seybold - External Oxygen saturation in Arterial blood by Pulse oximetry 2024-05-06 20:09:00 98 /min Kenia Seybo ld - External Systolic blood pressure 2024-05-06 20:09:00 128 mm[Hg] Kenia Seybo ld - External Diastolic blood pressure 2024-05-06 20:09:00 68 mm[Hg] Kenia Seybo ld - External Heart rate 2024-05-06 20:09:00 84 /min Kelse y Seybold - External Body temperature 2024-05-06 20:09:00 36.78 Heaven Kenia Seybold - External Respiratory rate 2024-05-06 20:09:00 18 /min Kenia Seybold - External Body height 2024-05-06 20:09:00 157.5 cm Tierney ey Seybold - External Systolic blood pressure 2024-02-12 14:29:00 118 mm[Hg] Kenia Seybo ld - External Diastolic blood pressure 2024-02-12 14:29:00 64 mm[Hg] Kenia Seybo ld - External Heart rate 2024-02-12 14:29:00 82 /min Kelse y Seybold - External Body temperature 2024-02-12 14:29:00 36.89 Heaven Kenia Seybold - External Respiratory rate 2024-02-12 14:29:00 16 /min Kenia Seybold - External Body height 2024-02-12 14:29:00 157.5 cm Tierney ey Seybold - External Body weight 2024-02-12 14:29:00 77.565 kg Tierney ey Seybold - External BMI 2024-02-12 14:29:00 31.28 kg/m2 Tierney ey Seybold - External Oxygen saturation in Arterial blood by Pulse oximetry 2024-02-12 14:29:00 98 /min Kenia Seybo ld - External Systolic blood pressure 2024-01-02 12:56:00 120 mm[Hg] Kenia Seybo ld - External Diastolic blood pressure 2024-01-02 12:56:00 60 mm[Hg] Kenia Seybo ld - External Heart rate 2024-01-02 12:56:00 92 /min Ziggy quiñonez Seybold - External Body temperature 2024-01-02 12:56:00 35.72 Heaven Kenia Seybold - External Respiratory rate 2024-01-02 12:56:00 15 /min Kenia Mahoneyybold - External Body height 2024-01-02 12:56:00 157.5 cm Tierney hearn Seybold - External Body weight 2024-01-02 12:56:00 78.019 kg Tierney ey Seybold - External BMI 2024-01-02 12:56:00 31.46 kg/m2 Tierney ey Seybold - External BP Diastolic 2023-02-25 00:00:00 84 mm[Hg] [facility] Height 2023-02-25 00:00:00 62 [in_i] [facility] BMI (Body Mass Index) 2023-02-25 00:00:00 32.9 kg/m2 [facility] BP Systolic 2023-02-25 00:00:00 144 mm[Hg] [facility] Body Weight 2023-02-25 00:00:00 2880 [oz_av] [facility] BP Diastolic 2023-02-08 00:00:00 79 mm[Hg] [place] [facility] Height 2023-02-08 00:00:00 62 [in_i] [facility] [facility] BMI (Body Mass Index) 2023-02-08 00:00:00 32.5 kg/m2 [facility] BP Systolic 2023-02-08 00:00:00 147 mm[Hg] [facility] Body Weight 2023-02-08 00:00:00 177.8 [lb_av] [place] [facility] BP Diastolic 2022-11-27 00:00:00 80 mm[Hg] [facility] Height 2022-11-27 00:00:00 62 [in_i] [facility] BMI (Body Mass Index) 2022-11-27 00:00:00 32.4 kg/m2 [facility] BP Systolic 2022-11-27 00:00:00 132 mm[Hg] [facility] Body Weight 2022-11-27 00:00:00 2832 [oz_av] [facility] BP Diastolic 2022-09-11 00:00:00 72 mm[Hg] [facility] Height 2022-09-11 00:00:00 62 [in_i] [facility] BMI (Body Mass Index) 2022-09-11 00:00:00 30.4 kg/m2 [facility] BP Systolic 2022-09-11 00:00:00 154 mm[Hg] [facility] Body Weight 2022-09-11 00:00:00 2656 [oz_av] [facility] BP Diastolic 2022-09-04 00:00:00 78 mm[Hg] [facility] Height 2022-09-04 00:00:00 62 [in_i] [facility] BMI (Body Mass Index) 2022-09-04 00:00:00 30.5 kg/m2 [facility] BP Systolic 2022-09-04 00:00:00 138 mm[Hg] [facility] Body Weight 2022-09-04 00:00:00 2672 [oz_av] [facility] BP Diastolic 2022-08-27 00:00:00 76 mm[Hg] [facility] Height 2022-08-27 00:00:00 62 [in_i] [facility] BMI (Body Mass Index) 2022-08-27 00:00:00 30.7 kg/m2 [facility] BP Systolic 2022-08-27 00:00:00 144 mm[Hg] [facility] Body Weight 2022-08-27 00:00:00 2688 [oz_av] [facility] BP Diastolic 2022-08-13 00:00:00 80 mm[Hg] [facility] Height 2022-08-13 00:00:00 62 [in_i] [facility] BMI (Body Mass Index) 2022-08-13 00:00:00 30.4 kg/m2 [facility] BP Systolic 2022-08-13 00:00:00 164 mm[Hg] [facility] Body Weight 2022-08-13 00:00:00 2656 [oz_av] [facility] Height 2021-05-10 17:00:00 157.48 CM Weight 2021-05-10 17:00:00 81.64 KG Height 2020-04-03 10:05:00 1.57 CM Weight 2020-04-03 10:05:00 83.91 KG Procedures Procedure Date / Time Performed Performing Clinician Source EKG-12 LEAD 2024-09-15 22:00:02 Singer [facility] INFLUENZA A/B RSV COVID NAAT 2024-09-15 21:59:00 Regino Arenas [facility] TROPONIN I 2024-09-15 20:39:00 Singer [facility] HEPATIC FUNCTION PANEL (80224) (ALB,T.PRO,BILI T,BU/BC,ALT,AST,ALK PHOS) 2024-09-15 [facility]:39[facility] METABOLIC PAN[facility] ([id number]) 2024-09-15 20:39:00 [facility] CBC WITH DIFF 2024-09-15 20:39:00 Bennett [facility] N-TERMINAL PRO-BNP 2024-09-15 20:39:00 Singer [facility] POCT GLUCOSE (AUTOMATED) 2024-08-23 17:50:00 Dilia Zavala [facility] TRANSTHORACIC ECHO (TTE) COMPLETE 2024-08-23 14:42:00 Darling Zavala [facility] POCT GLUCOSE (AUTOMATED) 2024-08-23 13:55:00 Dilia Zavala [facility] N-TERMINAL PRO-BNP 2024-08-23 09:19:00 Darling Zavala [facility] BASIC METABOLIC PANEL (NA, K, CL, CO2, GLUCOSE, BUN, CREATININE, CA) 2024-08-23 09:19:00 Darvin Rehman [facility] POCT GLUCOSE (AUTOMATED) 2024-08-23 02:27:00 Dilia Zavala [facility] TROPONIN I 2024-08-22 23:20:00 [facility] 2024-08-22 22:36:00 Dilia Zavala [facility] TROPONIN I 2024-08-22 17:37:00 [facility] ([facility]) 2024-08-22 17:34:00 Dilia Zavala moon [facility] POCT GLUCOSE (AUTOMATED) 2024-08-22 13:32:00 Dilia Zavala moon [facility] N-TERMINAL PRO-BNP 2024-08-22 09:57:00 Lucas [facility] MAGNESIUM 2024-08-22 09:57:00 [facility] TROPONIN I 2024-08-22 09:57:00 [facility] BASIC METABOLIC PANEL (NA, K, CL, CO2, GLUCOSE, BUN, CREATININE, CA) 2024-08-22 09:57:00 Lucas [facility] LIPID PANEL ([id number])(TOTAL CHOLESTEROL, TRIGLYCERIDES, HDL) 2024-08-22 09:57:00 [facility] 2024-08-22 05:09:00 Darvin Rehman [facility] TROPONIN I 2024-08-22 05:09:00 [facility] THYROID STIMULATING HORMONE 2024-08-22 05:09:00 Lucas [facility] LIPID PANEL ([id number])(TOTAL CHOLESTEROL, TRIGLYCERIDES, HDL) 2024-08-22 05:09:00 Darvin Rehman [facility] POCT GLUCOSE (AUTOMATED) 2024-08-22 02:46:00 Dilia Zavala moon [facility] EKG-12 LEAD 2024-08-22 01:43:44 Aderibigbe, Jubril Un [facility] CT CHEST PULMONARY ANGIOGRAM 2024-08-22 00:23:47 Christine Collins [facility] CBC WITH DIFF 2024-08-21 23:02:00 Christine Collins [facility] GLYCOSYLATED HEMOGLOBIN (A1C) 2024-08-21 23:02:00 Darling Zavala [facility] D-DIMER 2024-08-21 23:02:00 Christine Collins Un [facility] N-TERMINAL PRO-BNP 2024-08-21 23:02:00 Miryam Collins [facility] TROPONIN I 2024-08-21 23:02:00 Christine Collins Un [facility] COMP. METABOLIC PANEL ([id number]) 2024-08-21 23:02:00 Christine Collins [facility] CT HEAD WO CONTRAST 2024-08-20 01:02:57 Shweta Ohara [facility] TROPONIN I 2024-08-20 00:40:00 Stephanie Ohara [facility] COMP. METABOLIC PANEL ([id number]) 2024-08-20 00:40:00 Stephanie Ohara [facility] CBC WITH DIFF 2024-08-20 00:40:00 Stephanie Ohara [facility] POCT GLUCOSE (AUTOMATED) 2024-08-20 00:38:00 Melody Oharaunde [facility] MAMMO, screening, bilateral 2022-08-13 00:00:00 [facility] LDCT, chest, for lung cancer screening 2022-08-13 00:00:00 [facility] Extraction of [place] Tooth [facility] Procedure on Upper Arm [facility] Ligation of Fallopian Tube [facility] Plan of Care Planned Activity Planned Date Details Comments Source Diagnostic Test Pending 2023-02-25 00:00:00 MARGARETTE (antinuclear antibodies) screen, serum [code = MARGARETTE (antinuclear antibodies) screen, serum] [facility] Diagnostic Test Pending 2023-02-25 00:00:00 rf (rheumatoid factor), serum [code = rf (rheumatoid factor), serum] [facility] Diagnostic Test Pending 2023-02-25 00:00:00 CMP, serum or plasma [code = CMP, serum or plasma] [facility] Diagnostic Test Pending 2023-02-25 00:00:00 CBC w/ auto diff [code = CBC w/ auto diff] [facility] Diagnostic Test Pending 2023-02-25 00:00:00 TSH + free T4, serum [code = TSH + free T4, serum] [facility] Encounters Start Date/Time End Date/Time Encounter Type Admission Type Attending [facility] Care Department Encounter ID Source 2024-10-13 09:45:00 2024-10-13 09:45:00 Outpatient RUDOLPH DORANTES [id number] Kenia gavin 2024-09-21 00:00:00 2024-09-21 00:00:00 Outpatient RUDOLPH DORANTES [id number] Kenia gavin 2024-09-20 00:00:00 2024-09-20 00:00:00 Outpatient MIGUEL STAUFFER [id number] Kenia gavin 2024-09-15 13:54:00 2024-09-15 16:45:00 Emergency X REGINO ARENAS BRENT [facility] ERT [id number] [facility] 2024-09-15 13:54:00 2024-09-15 16:45:00 Emergency Regino Arenas [facility] 1.2.840.114 350.1.13.10 4.2.7.2.686 [id number] [facility] 2024-09-09 00:00:00 2024-09-09 00:00:00 Outpatient RUDOLPH DORANTES [id number] Kenia Burton 2024-09-08 09:30:00 2024-09-08 09:30:00 Outpatient JOHNIE MONACOSEY [id number] [facility] 2024-09-07 11:30:00 2024-09-07 11:30:00 Outpatient RUDOLPH DORANTES KENIA [id number] Kenia Mahoneykehinde 2024-09-02 00:00:00 2024-09-02 00:00:00 Outpatient BERNARDAZARUDOLPH Wing KENIA [id number] Kenia Mahoneykehinde 2024-08-27 08:15:00 2024-08-27 08:15:00 Outpatient TRUDI ALLAN KENIA [id number] [facility] 2024-08-25 00:00:00 2024-08-25 15:29:48 Transition of Care Gretta Haas Marisa M [address] 1..840.114 350.1.13.10 4.2.7.2.686 [id number] [facility] 2024-08-21 16:34:00 2024-08-23 12:28:00 Inpatient X DARLING ZAVALA [facility] GEO [id number] [facility] 2024-08-21 16:34:00 2024-08-23 12:28:00 Hospital Encounter Christine Collins Jelani [facility] ..840.114 350.1.13.10 4.2.7.2.686 [id number] [facility] 2024-08-20 00:00:00 2024-08-20 00:00:00 Outpatient PREZARUDOLPH Wing KENIA [id number] [facility] 2024-08-20 00:00:00 2024-08-20 00:00:00 Outpatient RUDOLPH DORANTES KENIA [id number] [facility] 2024-08-19 18:29:00 2024-08-19 22:28:00 Emergency X STEPHANIE OHARA YETUNDE [facility] ERT [id number] [facility] 2024-08-19 18:29:00 2024-08-19 22:28:00 Emergency Stephanie Ohara [facility] 1.2.840.114 350.1.13.10 4.2.7.2.686 [id number] [facility] 2024-08-19 00:00:00 2024-08-19 00:00:00 Outpatient BERNARDARENNYRUDOLPH Wing KENIA LEZAMA [id number] Kenia kehinde 2024-08-18 00:00:00 2024-08-18 00:00:00 Outpatient JOSE E RUDOLPH LEZAMA [id number] Kenia kehinde 2024-08-17 10:00:00 2024-08-17 10:00:00 Outpatient LAB90 KENIA LEZAMA [id number] Kenia Burton 2024-08-17 09:15:00 2024-08-17 09:15:00 Outpatient JOSE E RUDOLPH KENIA LEZAMA [id number] [facility] 2024-08-03 00:00:00 2024-08-03 00:00:00 Outpatient ROHANMIGUEL [id number] Kenia kehinde 2024-07-23 00:00:00 2024-07-23 00:00:00 Outpatient ROHANMIGUEL [id number] Kenia Mahoneykehinde 2024-07-23 00:00:00 2024-07-23 00:00:00 Outpatient MIGUEL STAUFFER [id number] [facility] 2024-07-20 09:05:00 2024-07-20 09:05:00 Outpatient LAB90 KENIA LEZAMA [id number] [facility]ia [facility] 2024-07-14 00:00:00 2024-07-14 00:00:00 Outpatient MIGUEL STAUFFER [id number] [facility] 2024-07-08 00:00:00 2024-07-08 00:00:00 Outpatient MIGUEL STAUFFER [id number] [facility] 2024-07-05 00:00:00 2024-07-05 00:00:00 Outpatient MIGUEL STAUFFER KENIA [id number] [facility] 2024-07-02 09:55:00 2024-07-02 09:55:00 Outpatient LAB90 KENIA KENIA [id number] [facility] 2024-06-16 00:00:00 2024-06-16 00:00:00 Outpatient MIGUEL STAUFFER KENIA [id number] [facility] 2024-06-10 09:10:00 2024-06-10 09:10:00 Outpatient LAB90 KENIA KENIA [id number] [facility] 2024-05-20 00:00:00 2024-05-20 00:00:00 Outpatient MIGUEL STAUFFER KENIA [id number] [facility] 2024-05-14 00:00:00 2024-05-14 00:00:00 Outpatient MIGUEL STAUFFER KENIA LEZAMA [id number] [facility] 2024-05-14 00:00:00 2024-05-14 00:00:00 Outpatient [facility] STAUFFER [facility]ENIA [id number] [facility] 2024-05-08 00:00:00 2024-05-08 00:00:00 Outpatient MIGUEL STAUFFER KENIA [id number] [facility] 2024-05-08 00:00:00 2024-05-08 00:00:00 Outpatient MIGUEL STAUFFER KENIA LEZAMA [id number] [facility] 2024-05-06 16:30:00 2024-05-06 16:30:00 Outpatient MIGUEL STAUFFER KENIA [id number] [facility] 2024-05-06 15:15:00 2024-05-06 15:15:00 Outpatient MIGUEL STAUFFER KENIA [id number] [facility] 2024-04-26 00:00:00 2024-04-26 00:00:00 Outpatient MIGUEL STAUFFERRIGO LEZAMA [id number] [facility] 2024-04-22 08:30:00 2024-04-22 08:30:00 Outpatient MIGUEL STAUFFERRIGO LEZAMA [id number] [facility] 2024-04-16 00:00:00 2024-04-16 00:00:00 Outpatient MIGUEL STAUFFER KENIA [id number] [facility] 2024-04-13 15:15:00 2024-04-13 15:15:00 Outpatient JASON REDD KENIA LEZAMA [id number] [facility] 2024-04-13 08:00:00 2024-04-13 08:00:00 Outpatient MIGUEL STAUFFER KENIA [id number] [facility] 2024-03-31 00:00:00 2024-03-31 00:00:00 Outpatient RUDOLPH DORANTES KENIA LEZAMA [id number] [facility] 2024-03-27 00:00:00 2024-03-27 00:00:00 Outpatient RUDOLPH DORANTES KENIA LEZAMA [id number] [facility] 2024-03-17 00:00:00 2024-03-17 00:00:00 Outpatient MIGUEL STAUFFER KENIA [id number] [facility] 2024-03-11 00:00:00 2024-03-11 00:00:00 Outpatient MIGUEL STAUFFER KENIA LEZAMA [id number] [facility] 2024-03-09 09:00:00 2024-03-09 09:00:00 Outpatient BOONE MAHONEY [id number] [facility] 2024-02-17 00:00:00 2024-02-17 00:00:00 Outpatient MIGUEL STAUFFER KENIA LEZAMA [id number] [facility] 2024-02-12 09:30:00 2024-02-12 09:30:00 Outpatient MIGUEL STAUFFER KENIA LEZAMA [id number] [facility] 2024-02-12 00:00:00 2024-02-12 00:00:00 Outpatient MIGUEL STAUFFER KENIA LEZAMA [id number] [facility] 2024-01-30 09:30:00 2024-01-30 09:30:00 Outpatient MIGUEL STAUFFER KENIA LEZAMA [id number] [facility] 2024-01-22 00:00:00 2024-01-22 00:00:00 Outpatient MIGUEL STAUFFER KENIA [id number] [facility] 2024-01-20 00:00:00 2024-01-20 00:00:00 Outpatient MIGUEL STAUFFER KENIA [id number] [facility] 2024-01-16 00:00:00 2024-01-16 00:00:00 Outpatient MIGUEL STAUFFER KENIA [id number] [facility] 2024-01-16 00:00:00 2024-01-16 00:00:00 Outpatient MIGUEL STAUFFER KENIA [id number] [facility] 2024-01-13 00:00:00 2024-01-13 00:00:00 Outpatient MIGUEL STAUFFER KENIA LEZAMA [id number] [facility] 2024-01-10 00:00:00 2024-01-10 00:00:00 Outpatient MIGUEL STAUFFER KENIA [id number] [facility] 2024-01-08 00:00:00 2024-01-08 00:00:00 Outpatient MIGUEL STAUFFER KENIA [id number] [facility] 2024-01-02 09:15:00 2024-01-02 09:15:00 Outpatient HEATHER LEZAMA KENIA [id number] [facility] 2024-01-02 08:30:00 2024-01-02 08:30:00 Outpatient MIGUEL STAUFFER KENIA [id number] [facility] 2023-06-06 00:00:00 2023-06-06 00:00:00 Outpatient Ferguson_Ro bin MEHOP MEHOP [id number] [facility] 2023-05-02 00:00:00 2023-05-02 00:00:00 Outpatient Ferguson_Ro bin MEHOP MEHOP [id number] [facility] 2023-03-28 00:00:00 2023-03-28 00:00:00 Outpatient Ferguson_Ro bin MEHOP MEHOP [id number] [facility] 2023-03-07 08:36:00 2023-03-07 08:36:00 [facility] [id number] [facility] 2023-02-25 00:00:00 2023-02-25 00:00:00 Outpatient ERCRYSON_R [facility] [id number] [facility] 2023-02-25 00:00:00 2023-02-25 00:00:00 Rudy Garcia, DO: [address] [place] [address] , Ph. [phone] [place] [address] - [facility], DR. GARCIA [id number] [facility] 2023-02-08 00:00:00 2023-02-08 00:00:00 Outpatient Ferguson_Ro bin [facility] [id number] [facility] 2023-02-08 00:00:00 2023-02-08 00:00:00 Jus Farah MD: [address] [place] [address] , Ph. [facility] [id number] [facility] 2023-02-01 00:00:00 2023-02-01 00:00:00 Outpatient Ferguson_Ro bin [facility] [id number] [facility] 2022-12-24 00:00:00 2022-12-24 00:00:00 Outpatient ERCRYSON_R [facility] [id number] 2022-11-27 00:00:00 2022-11-27 00:00:00 Rudy Garcia, DO: [address], [place] [address] , Ph. [place], DR. GARCIA [id number] [facility] 2022-11-19 00:00:00 2022-11-19 00:00:00 Outpatient ERICKSON_R [facility] [id number] [facility] 2022-11-19 00:00:00 2022-11-19 00:00:00 Outpatient ERICKSON_R [facility] [id number] [facility] 2022-11-19 00:00:00 2022-11-19 00:00:00 Outpatient ERICKSON_R [facility] [id number] [facility] 2022-10-15 00:00:00 2022-10-15 00:00:00 Outpatient ERICKSON_R [facility] [id number] [facility] 2022-09-11 00:00:00 2022-09-11 00:00:00 Outpatient ERICKSON_R [facility] [id number] [facility] 2022-09-11 00:00:00 2022-09-11 00:00:00 Rudy Garcia, DO: [address], [place] [address] , Ph. [phone] [place], DR[address] GARCIA [id number] [facility] 2022-09-04 00:00:00 2022-09-04 00:00:00 Outpatient ERICKSON_R [facility] [id number] [facility] 2022-09-04 00:00:00 2022-09-04 00:00:00 Rudy Garcia, DO: [place] [address] , Ph. [place], DR. GARCIA [id number] [facility] 2022-08-27 00:00:00 2022-08-27 00:00:00 Outpatient ERICKSON_R [facility] [id number] [facility] 2022-08-27 00:00:00 2022-08-27 00:00:00 Rudy Garcia, DO: [address] [place] [address] , Ph. [phone] [place], [address] GARCIA [id number] [facility] 2022-08-16 00:00:00 2022-08-16 00:00:00 Outpatient ERICKSON_R [facility] [id number] [facility] 2022-08-13 00:00:00 2022-08-13 00:00:00 Outpatient ERICKSON_R [facility] [id number] [facility] 2022-08-13 00:00:00 2022-08-13 00:00:00 Rudy Garcia, DO: [address], [place] [address] , Ph. [place], DR. GARCIA [id number] [facility] 2022-07-04 00:00:00 2022-07-04 00:00:00 Outpatient SISSON_C [facility] [id number] [facility] 2021-05-10 14:11:00 2021-05-10 18:30:00 Emergency E BRYNN LINDA [facility] [id number] [facility] 2020-04-03 10:00:00 2020-04-03 14:28:00 Emergency E JUS [facility] [id number] [facility] Results Test Description Test Time Test Comments Results Result Co mments Source [id number] 21:27:28* Test Item Value Reference Range Interpretation Comme nts NT-proBNP (test code = 61756-3) 652 pg/mL <=125 ADAM (test code = ADAM) Result Indeterminate-Consid er causes of NT-proBNP elevation other than Heart failure such as acute coronary syndrome, pulmonary embolism, pulmonary hypertension, sepsis, stroke, and renal dysfunction. Lab Interpretation (test code = 01181-3) Abnormal [facility]24-[facility]-10 21:16:41* Test Item Value Reference Range Interpretation Comme nts NA (test code = 7295828521) 142 mmol/L 135-145 K (test code = 1099862112) 4.4 mmol/L 3.5-5.0 CL (test code = 8953555496) 109 mmol/L 98-108 H CO2 TOTAL (test code = 9266672913) 30 mmol/L 23-31 AGAP (test code = 4958962768) 3 2-16 BUN (test code = 1086538828) 10 mg/dL 7-23 GLUCOSE (test code = 8391298647) 138 mg/dL 70-110 H CREATININE (test code = 2160-0) 0.55 mg/dL 0.50-1.04 TOTAL BILI (test code = 7956669550) 0.3 mg/dL 0.1-1.1 CALCIUM (test code = 2771740642) 9.5 mg/dL 8.6-10.6 T PROTEIN (test code = 2355283974) 7.0 g/dL 6.3-8.2 ALBUMIN (test code = 0921646641) 4.3 g/dL 3.5-5.0 ALK PHOS (test code = 4464423191) 36 U/L 34-122 ALTv (test code = 1742-6) 29 U/L 5-35 AST(SGOT) (test code = 2694965052) 36 U/L 13-40 eGFR (test code = 43859-5) 103.8 mL/min/1.73m2 CKD-EPI eGFR (2020). Assuming creatinine has been stable day-to-day for at least three months, the eGFR indicates Category G1 (>= 90 mL/min/1.73 m2) Lab Interpretation (test code = 88678-5) Abnormal [facility] (40629) (ALB,T.PRO,BILI T,BU/BC,ALT,AST,ALK PHOS)2024-09-15 21:16:41* Test Item Value Reference Range Interpretation Comme nts TOTAL BILI (test code = 2876060959) 0.3 mg/dL 0.1-1.1 BILI UNCON (test code = 9807392183) 0.1 mg/dL 0.1-1.1 BILI CONJ (test code = 8891042840) 0.0 mg/dL 0.0-0.3 T PROTEIN (test code = 6414568826) 7.0 g/dL 6.3-8.2 ALBUMIN (test code = 8770876173) 4.3 g/dL 3.5-5.0 ALK PHOS (test code = 4073720719) 36 U/L 34-122 ALTv (test code = 1742-6) 29 U/L 5-35 AST(SGOT) (test code = 0809909362) 36 U/L 13-40 Lab Interpretation (test cod e = 78768-9) Normal [facility] with [id number] 21:02:41* Test Item Value Reference Range Interpretation Comme nts WBC (test code = 6690-2) 5.59 4.30-11.10 RBC (test code = 789-8) 3.98 3.93-5.25 HGB (test code = 718-7) 11.0 g/dL 11.6-15.0 L HCT (test code = 4544-3) 34.5 % 35.7-45.2 L MCV (test code = 787-2) 86.7 fL 80.6-95.5 MCH (test code = 785-6) 27.6 pg 25.9-32.8 MCHC (test code = 786-4) 31.9 g/dL 31.6-35.1 RDW-SD (test code = 50757-1) 39.5 fL 39.0-49.9 RDW-CV (test code = 788-0) 12.6 % 12.0-15.5 PLT (test code = 777-3) 143 166-358 L MPV (test code = 86939-9) 10.4 fL 9.5-12.9 NRBC/100 WBC (test code = 1087354890) 0.0 0.0-10.0 NRBC x10^3 (test code = 8696876660) See_Comment [Automated messa ge] The system which generated this result transmitted reference range: 10*3/?L. The reference range was not used to interpret this result as normal/abnormal. GRAN MAT (NEUT) % (test code = 770-8) 63.4 % IMM GRAN % (test code = 8087607730) 0.40 % LYMPH % (test code = 736-9) 24.0 % MONO % (test code = 5905-5) 9.3 % EOS % (test code = 713-8) 2.5 % BASO % (test code = 706-2) 0.4 % GRAN MAT x10^3(ANC) (test code = 4458915548) 3.55 10*3/uL 1.88-7.09 IMM GRAN x10^3 (test code = 5016674421) 0.00-0.06 LYMPH x10^3 (test code = 731-0) 1.34 10*3/uL 1.32-3.29 MONO x10^3 (test code = 742-7) 0.52 10*3/uL 0.33-0.92 EOS x10^3 (test code = 711-2) 0.14 10*3/uL 0.03-0.39 BASO x10^3 (test code = 704-7) 0.01-0.07 Lab Interpretation (test code = 35776-8) [facility])2024-08-23 17:51:13* Test Item Value Reference Range Interpretation Comme nts POCT GLU (test code = 0501218241) 136 mg/dL 70-110 H Lab Interpretation (test cod e = 33804-3) Abnormal [facility] Texas[facility]an[facility]hor[facility] echo (TTE) [id number] 16:19:27* Test Item Value Reference Range Interpretation Comme nts Height (test code = 8574811436) 63 in Weight (test code = 9085098845) 185 lbs Systolic BP (test code = 3282300228) 159 mmHg Diastolic BP (test code = 8699642972) 81 mmHg Heart Rate (test code = 4833213995) 76 bpm LV GLS Endo Peak A2C () (test code = 4929497185) -24.10 % LV GLS Endo Peak A3C () (test code = 6168398401) -18.30 % LV GLS Endo Peak A4C () (test code = 0136024674) -22.60 % LV GLS Endo Peak Avg () (test code = 5378049128) -21.70 % BSA (test code = 3842825945) 1.85 m2 Ao root diam (test code = 3162710588) 3.20 cm Aortic root (test code = 2753083770) 3.2 cm Ao root annulus (test code = 3928799175) 3.2 cm LVOT diameter (test code = 0633263253) 2.11 cm LVOT area (test code = 9043164569) 3.50 cm2 LA size (test code = 5905335982) 4.9 cm LVIDD (test code = 3442013759) 4.50 cm Left Ventricular End Diastolic Volume by Teichholz Method (test code = 9560292) 92.3 mL IVS (test code = 9627222887) 1.72 cm Interventricular Septum Diastolic Thickness by 2D (test code = 7475192) 1.72 cm LVPWD (test code = 1916397491) 1.71 cm PW (test code = 0750003642) 1.71 cm 0.6-1.1 EF(Teich) (test code = 8381096148) 68.50 % LVIDS (test code = 7220592783) 2.80 cm Left Ventricular End Systolic Volume by Teichholz Method (test code = 7443561) 29.1 mL FS (test code = 6265574181) 38 % EF - 2D (test code = 90508607) 68.50 % Pulmonic Regurgitant End Max Velocity (test code = 6730534560) 133.1 cm/s LAV(MOD-sp4) (test code = 5477284063) 82.00 mL E wave decelartion time (test code = 1343764017) 0.19 s MV Peak E Ana (test code = 6560029333) 159.0 cm/s MV stenosis pressure 1/2 time (test code = 1761664594) 55.9 ms MV Peak A Ana (test code = 8118139574) 107.0 cm/s E/A ratio (test code = 3027479409) 1.49 ratio MR max PG (test code = 9287179648) 105.00 mm[Hg] MR max ana (test code = 4709176292) 512.30 cm/s Mr max ana (test code = 6542760322) 512.3 m/s MV Prop V (test code = 5543913943) 87.50 cm/s MV E/e' septal (test code = 4103032163) 8.1 cm/s Tapse (test code = 0473747592) 2.5 cm LVOT stroke volume (test code = 3556968866) 108.40 cm3 LVOT peak ana (test code = 1583295931) 165.3 cm/s LVOT mn grad (test code = 1457304593) 5.6 mmHg AV LVOT peak gradient (test code = 9245825573) 10.9 mmHg LVOT peak VTI (test code = 3621263463) 31.1 cm LV V1 mean (test code = 7156329089) 111.90 cm/s Aortic valve mean velocity (test code = 5686098765) 126.6 cm/s Ao peak ana (test code = 1845273088) 185.4 cm/s Ao VTI (test code = 7415388409) 33.9 cm AV area by cont VTI (test code = 2616678317) 3.2 cm2 AV area peak ana (test code = 5269292633) 3.1 cm2 Ao max PG (test code = 2201147653) 13.70 mm[Hg] AV peak gradient (test code = 6103365573) 13.7 mmHg AV valve area (test code = 6988334393) 3.20 cm2 AV mean gradient (test code = 0076532690) 7.1 mmHg Radiology Study observation (narrative) (test code = 32071-2) ADAM (test code = ADAM) ?Left?Ventricle: Left ventricle size is normal. Mildly increased wall thickness. Normal wall motion. Hyperdynamic systolic function with a visually estimated EF of 65 - 70%. Global longitudinal strain -21.7% (normal). There is pseudonormal diastolic dysfunction. ?Tricuspid?Valve: Insufficient tricuspid regurgitation jet to estimate RVSP . ?RA pressure is 5-10 mmHg. ?Left?Atrium: Left atrium is mildly dilated. Left VentricleLeft ventricle size is normal. Mildly increased wall thickness. Normal wall motion. Hyperdynamic systolic function with a visually estimated EF of 65 - 70%. Global longitudinal strain -21.7% (normal). There is pseudonormal diastolic dysfunction.Right VentricleRight ventricle size is normal. Normal systolic function.Left AtriumLeft atrium is mildly dilated.Right AtriumRight atrium size is normal.IVC/SVCIVC diameter is greater than 21 mm and decreases greater than 50% during inspiration; therefore the estimated right atrial pressure is intermediate (~8 mmHg).Mitral ValveMild mitral annular calcification. Trace transvalvular regurgitation.Tricusp id ValveTricuspid valve structure is normal. Trace transvalvular regurgitation. Insufficient tricuspid regurgitation jet to estimate RVSP . RA pressure is 5-10 mmHg.Aortic ValveTricuspid. Mildly thickened cusps.Pulmonic ValveNot well visualized. Trace transvalvular regurgitation.Ascendi ng AortaNormal sized aorta.PericardiumThe pericardium is normal. No pericardial effusion.Study DetailsStudy quality was adequate. A complete echocardiogram was performed using 2D, color flow Doppler, spectral Doppler and strain. [facility] GLUCOSE (AUTOMATED)2024-08-23 13:56:39* Test Item Value Reference Range Interpretation Comme nts POCT GLU (test code = 5412940592) 179 mg/dL 70-110 H Lab Interpretation (test cod e = 47765-1) Abnormal [facility] GLUCOSE (AUTOMATED)2024-08-23 02:28:35* Test Item Value Reference Range Interpretation Comme nts POCT GLU (test code = 1473552230) 252 mg/dL 70-110 H Lab Interpretation (test cod e = 27411-2) Abnormal [facility] GLUCOSE (AUTOMATED)2024-08-22 22:45:05* Test Item Value Reference Range Interpretation Comme nts POCT GLU (test code = 9752238148) 234 mg/dL 70-110 H Lab Interpretation (test cod e = 87897-9) Abnormal [facility] GLUCOSE (AUTOMATED)2024-08-22 17:35:03* Test Item Value Reference Range Interpretation Comme nts POCT GLU (test code = 5478770934) 238 mg/dL 70-110 H Lab Interpretation (test cod e = 60354-1) Abnormal [facility] GLUCOSE (AUTOMATED)2024-08-22 13:33:06* Test Item Value Reference Range Interpretation Comme nts POCT GLU (test code = 7091569970) 140 mg/dL 70-110 H Lab Interpretation (test cod e = 26154-5) Abnormal [facility] GLUCOSE (AUTOMATED)2024-08-22 02:47:03* Test Item Value Reference Range Interpretation Comme nts POCT GLU (test code = 9702069064) 196 mg/dL 70-110 H Lab Interpretation (test cod e = 82637-5) Abnormal [facility] CHEST PULMONARY [id number] 00:45:58PROCEDURE: CT CHEST WITH CONTRAST- CHEST PE PROTOCOL CLINICAL INDICATION: Pulmonary embolism (PE) suspected, positive D-dimer ? COMPARISON: None TECHNIQUE: Volumetric helical CT angiogram was performed of the chest (lungapices to bases) with IV contrast. Images were reconstructed at 1.25 mmslice thickness. Corresponding axial, sagittal and coronal MIP images wereperformed. Axial MIPs and coronal and sagittal MPR images were generatedand reviewed.. FINDINGS: DEVICES: None HEART AND GREAT VESSELS: The opacification of the pulmonary vasculature isappropriate. No filling defects are seen through t he level of the segmentalpulmonary arteries. The pulmonary trunk is normal in caliber.The thoracic aorta is normal in caliber.The heart is normal in size. No pericardial abnormalities are identified.The RV to LV is normal. MEDIASTINUM AND LOWER NECK: No central airway lesions are detected. Theesophagus is within normal limits. The included thyroid gland appearsnormal. LYMPH NODES: Scattered smalllymph nodes in both sides of the mediastinumand hilar regions. No evidence of intrathoracic lymphadenopathy. LUNGS AND PLEURA: The lungs are well-expanded and clear. Interlobularseptal thickening noted in both lower lobes. Mild centrilobularemphysematous changes are seen. Scattered calcified granulomas are noted.No focal opacities are identified. No suspicious nodules. No pleuralabnormality detected. VISUALIZED UPPER ABDOMEN: Cirrhotic liver with splenomegaly.Cholelithiasis. OSSEOUS STRUCTURES AND SOFT TISSUES: No focal osseous lesions are detected.The soft tissues appear normal.[facility]CT [facility] [id number] 03:14:32EXAM: CT HEAD WO CONTRAST HISTORY: Dizziness. TECHNIQUE: Axial CT of the head was performed andrecon structed at 5 mm intervals. Coronal and sagittal reformatted imageswere generated. COMPARISON: NoneFINDINGS: The ventricles and cerebral sulci are normal in caliber and configuration.No midline shift or pathological extra-axial fluid collection is present.The basal cisterns are unremarkable. No acute intracranial hemorrhage or significant mass effect is visualized.No parenchymal attenuation abnormality is seen. The lopez-white matterdifferentiation is preserved. The mastoid air cells and visualized paranasal air sinuses are clear. Thecalvarium and central skull base are unremarkable.[facility]TR[facility] [id number] 02:51:36* Test Item Value Reference Range Interpretation Comme nts TROPONIN I (test code = [id number]) 0.010 ng/mL <=0.034 ADAM (test code = ADAM) Reference (Normal) Range (defined by the 99th percentile reference limit): <= 0.034 ng/mL Note: Cardiac troponin begins to rise 3-4 hours after the onset of ischemia. Repeat in 4-6 hours if the sample was drawn within 3-4 hours of the onset of the symptom and found normal. Diagnosis of myocardial injury is made with acute changes in cTn concentrations with at least one serial sample above the 99th percentile upper reference limit (URL), taken together with the patient's clinical presentation. Biotin has been reported to cause a negative bias, interpret results relative to patient's use of biotin. Lab Interpretation (test code = 71320-7) Normal [facility]. METABOLIC PANEL (97305)2024-08-20 02:41:35* Test Item Value Reference Range Interpretation Comme nts NA (test code = 5705514556) 138 mmol/L 135-145 K (test code = 9372001609) 3.4 mmol/L 3.5-5.0 L CL (test code = 2291976820) 103 mmol/L 98-108 CO2 TOTAL (test code = 4076599450) 26 mmol/L 23-31 AGAP (test code = 4987825227) 9 2-16 BUN (test code = 2803248514) 11 mg/dL 7-23 GLUCOSE (test code = 6094609879) 219 mg/dL 70-110 H CREATININE (test code = 2160-0) 0.49 mg/dL 0.50-1.04 L TOTAL BILI (test code = 8533998610) 0.2 mg/dL 0.1-1.1 CALCIUM (test code = 3718425304) 9.4 mg/dL 8.6-10.6 T PROTEIN (test code = 7440369931) 7.4 g/dL 6.3-8.2 ALBUMIN (test code = 8169535438) 4.6 g/dL 3.5-5.0 ALK PHOS (test code = 8815120076) 43 U/L 34-122 ALTv (test code = 1742-6) 28 U/L 5-35 AST(SGOT) (test code = 4446875846) 31 U/L 13-40 eGFR (test code = 18461-5) 106.7 mL/min/1.73m2 CKD-EPI eGFR (2020). Assuming creatinine has been stable day-to-day for at least three months, the eGFR indicates Category G1 (>= 90 mL/min/1.73 m2) Lab Interpretation (test code = 89483-7) [facility] [id number] 02:18:57* Test Item Value Reference Range Interpretation Comme nts WBC (test code = 6690-2) 6.61 4.30-11.10 RBC (test code = 789-8) 4.39 3.93-5.25 HGB (test code = 718-7) 12.0 g/dL 11.6-15.0 HCT (test code = 4544-3) 37.4 % 35.7-45.2 MCV (test code = 787-2) 85.2 fL 80.6-95.5 MCH (test code = 785-6) 27.3 pg 25.9-32.8 MCHC (test code = 786-4) 32.1 g/dL 31.6-35.1 RDW-SD (test code = 23497-4) 40.2 fL 39.0-49.9 RDW-CV (test code = 788-0) 13.1 % 12.0-15.5 PLT (test code = 777-3) 174 166-358 MPV (test code = 67780-3) 10.6 fL 9.5-12.9 NRBC/100 WBC (test code = 9669575754) 0.0 0.0-10.0 NRBC x10^3 (test code = 2681589250) See_Comment [Automated me ssage] The system which generated this result transmitted reference range: 10*3/?L. The reference range was not used to interpret this result as normal/abnormal. GRAN MAT (NEUT) % (test code = 770-8) 62.2 % IMM GRAN % (test code = 8840007594) 0.30 % LYMPH % (test code = 736-9) 28.7 % MONO % (test code = 5905-5) 7.7 % EOS % (test code = 713-8) 0.8 % BASO % (test code = 706-2) 0.3 % GRAN MAT x10^3(ANC) (test code = 2827779595) 4.11 10*3/uL 1.88-7.09 IMM GRAN x10^3 (test code = 3670942469) 0.00-0.06 LYMPH x10^3 (test code = 731-0) 1.90 10*3/uL 1.32-3.29 MONO x10^3 (test code = 742-7) 0.51 10*3/uL 0.33-0.92 EOS x10^3 (test code = 711-2) 0.05 10*3/uL 0.03-0.39 BASO x10^3 (test code = 704-7) 0.01-0.07 [facility] GLUCOSE (AUTOMATED)2024-08-20 00:39:52* Test Item Value Reference Range Interpretation Comme nts POCT GLU (test code = 4210502495) 219 mg/dL 70-110 H Lab Interpretation (test cod e = 34153-0) [facility] - Urine 2022-09-04 14:57:00* Test Item Value Reference Range Interpretation Comme nts Leukocytes (test code = Leukocytes) Trace Nitrite (test code = Nitrite) negative Urobilinogen (test code = Urobilinogen) .2 Protein (test code = Protein) Negative pH (test code = pH) 6.5 Blood (test code = Blood) Large Specific [place] (test code = Specific [place]) 1.000 Ketone (test code = Ketone) Negative Bilirubin (test code = Bilirubin) Negative Glucose (test code = Glucose) Negative Appearance (test code = Appearance) Clear Color (test code = Color) Pale Yellow [place] [id number] 17:50:00* Test Item Value Reference Range Interpretation Comme nts TROPONIN I (test code = A84) <0.015 ng/mL 0.000-0.045 BRAIN NATRIURETIC [id number] 17:46:00* Test Item Value Reference Range Interpretation Comme nts proBNP (test code = PBNP) 313 pg/mL 0-125 H SARS-CoV (RAPID ANTIGEN)2021-05-10 17:39:00* Test Item Value Reference Range Interpretation Comme nts SARS-CoV (ANTIGEN) (test code = COVAG) NEGATIVE NEGATIVE COVID AG (test code = COVAGC) This test has been marketed under the FDA Emergency Use Authorization (EUA) to meet challenges of the COVID-19 pandemic. The validation standards normally enforced by the FDA and the [employer] the [employer] (CAP) are more stringent than those required for this test. Therefore, the result should be interpreted with caution and close attention to other clinical and epidemiological data [id number] 17:36:00* Test Item Value Reference Range Interpretation Comme nts MAGNESIUM (test code = 48A) 2.3 mg/dL 1.8-2.4 AMYLASE AND [id number] 17:36:00* Test Item Value Reference Range Interpretation Comme nts AMYLASE (test code = 10A) 31 U/L 28-100 LIPASE (test code = 60A) 97 IU/L 73-393 COMPREHENSIVE METABOLIC [id number] 17:36:00* Test Item Value Reference Range Interpretation Comme nts GLUCOSE (test code = 06D) 182 mg/dL 75-100 H SODIUM (test code = 01A) 141 mmol/L 136-145 POTASSIUM (test code = 01B) 3.8 mmol/L 3.6-5.1 CHLORIDE (test code = 04A) 108 mmol/L 98-107 H CO2 (test code = 02A) 27 mmol/L 22-32 ANION GAP (test code = ANG) 9.8 mmol/L BUN (test code = 05D) 8 mg/dL 7-18 CREATININE (test code = 03E) 0.6 mg/dL 0.4-1.1 GFR (test code = GFR) 98 mL/min/1.73m\\S\\2 See_Comment [Automated message] The system which generated this result transmitted reference range: >=90. The reference range was not used to interpret this result as normal/abnormal. GFR (test code = GFRAA) 113 mL/min/1.73m\\S\\2 See_Comment [Automated message] The system which generated this result transmitted reference range: >=90. The reference range was not used to interpret this result as normal/abnormal. EGFR (test code = EGFR) eGFR BY CKD-EPI CALCULATION IS NOT RECOMMENDED FOR PATIENTS UNDER 18 YEARS OF AGE. BUN/CREA (test code = BCR) 13 12-20 CALCIUM (test code = 09D) 9.1 mg/dL 8.3-9.5 BILI TOTAL (test code = 11A) 0.5 mg/dL 0.2-1.0 PROTEIN (test code = 07D) 7.9 g/dL 6.4-8.2 ALBUMIN (test code = 08D) 4.0 g/dL 3.5-4.8 GLOBULIN (test code = GLB) 3.9 g/dL 1.5-3.8 H ALB/GLOB (test code = AGRR) 1.0 1.0-2.6 ALK PHOS (test code = 35A) 59 IU/L 42-121 AST (test code = 30A) 34 IU/L See_Comment [Automated message] The system which generated this result transmitted reference range: <=42. The reference range was not used to interpret this result as normal/abnormal. ALT (test code = 31A) 49 IU/L See_Comment [Automated message] The system which generated this result transmitted reference range: <=78. The reference range was not used to interpret this result as normal/abnormal. [id number] 17:26:00* Test Item Value Reference Range Interpretation Comme nts D-DIMER (test code = DDI) <200 ng/mL D-DU 0-234 D-DIMER COMMENT (test code = DDCOM) *Level to rule out DVT or PE: <235 ng/mL D-DU* PRO TIME AND [id number] 17:26:00* Test Item Value Reference Range Interpretation Comme nts PT (test code = TT) 11.7 s 9.8-13.6 INR (test code = INR) 1.0 INRH (test code = INRH) SUGGESTED THERAPEUTIC RANGE FOR INR: 2.5 - 3.5 For Patients with Prosthetic Valves or Patients with recurrent Thromboembolic Events 2.0 - 3.0 For Most Other Applications PTT (test code = PTT) 29.7 s 20.2-38.0 PTTH (test code = PTTH) To monitor the effectiveness of heparin, we offer the Anti-Xa (Heparin Assay). It can be used for either unfractionated or LMW Heparin. Order Code is ANTI-XA URINALYSIS WITH [id number] 17:23:00* Test Item Value Reference Range Interpretation Comme nts COLOR (test code = COLU) YELLOW YELLOW CLARITY (test code = CLA) CLOUDY CLEAR A GLUCOSE UR (test code = UA GLUCOSE) 2+ NEGATIVE A BILI UR (test code = BILE) NEGATIVE NEGATIVE KETONES UR (test code = DAGOBERTO) NEGATIVE NEGATIVE SP GRAVITY (test code = SPGR) 1.024 1.005-1.030 PH UR (test code = PH) 6.0 4.5-8.0 PROTEIN UR (test code = PU) 1+ NEGATIVE A UROBIL UR (test code = UROQ) 0.2 EU/dL 0.2-1.0 NITRITE UR (test code = NITRITE) NEGATIVE NEGATIVE BLOOD UR (test code = UA BLOOD) NEGATIVE NEGATIVE LEUK ES UR (test code = LEUK) 1+ NEGATIVE A WBC UR (test code = UWBC) 5 /HPF 0-5 RBC UR (test code = URBC) 1 /HPF 0-2 EPITH UR (test code = UEPC) MODERATE /LPF FEW A BACTERIA UR (test code = UBACT) FEW /HPF NONE A CAST UR (test code = CAST) /LPF NONE CRYSTAL UR (test code = CRYU) / LPF NONE MUCUS UR (test code = MUC) / HPF NONE AMORPH UR (test code = RIC) / HPF NONE TRICH UR (test code = UTRICH) /HPF NONE YEAST UR (test code = UY) /HPF NONE SPERM UR (test code = USPERM) /HPF NONE CBC (INCLUDES AUTOMATED DIFFERENTIAL)2021-05-10 17:12:00* Test Item Value Reference Range Interpretation Comme nts WBC (test code = WBC) 6.5 10\\S\\3/uL 4.5-11.0 RBC (test code = RBC) 5.07 10\\S\\6/uL 4.20-5.60 HGB (test code = HBG) 14.5 g/dL 12.0-15.5 HCT (test code = HCT) 43.4 % 35.0-44.0 MCV (test code = MCV) 85.6 fL 81.0-99.0 MCH (test code = MCH) 28.6 pg 27.0-31.0 MCHC (test code = MCHC) 33.4 g/dL 32.0-36.0 RDW (test code = RDW) 12.6 % 11.5-14.5 PLT (test code = PLT) 163 10\\S\\3/uL 130-400 MPV (test code = MPV) 10.8 fL 9.4-12.4 NEUTROP # (test code = NE#) 3.7 10\\S\\3/uL 1.6-8.0 LYMPH # (test code = LY#) 2.3 10\\S\\3/uL 1.1-3.5 MONOCYTE # (test code = MO#) 0.4 10\\S\\3/uL 0.0-1.1 EOSINOPH # (test code = EO#) 0.1 10\\S\\3/uL 0.0-0.7 BASOPHIL # (test code = BA#) 0.0 10\\S\\3/uL 0.0-0.3 IG # (test code = IG#) 0.02 10\\S\\3/uL 0.00-0.06 NRBC # (test code = NRBC#) 0.00 10\\S\\3/uL 0.00-0.01 NEUTROPH % (test code = NE%) 56.3 % 35.0-73.0 LYMPH % (test code = LY%) 34.7 % 20.0-55.0 MONO % (test code = MO%) 6.6 % 2.5-10.0 EOSINOPH % (test code = EO%) 1.8 % 0.0-5.0 BASOPHIL % (test code = BA%) 0.3 % 0.0-2.0 IG % (test code = IG%) 0.3 % 0.0-0.8 NRBC% (test code = NRBC%) 0.0 % 0.0-0.2 MANDIFF (test code = MDIFF) NO RBC MORPH (test code = RBCMOR) NORMAL XR CHEST 1 VIEW [id number] 15:00:59 [facility] 1960 Sex: FPortable AP chest, 1 viewLocation Code: [id number] HISTORY: Chest painCOMPARISON: 04/03/2020COMMENT: The lungs are clear and well inflated. The costophrenic angles are sharp. The cardiomediastinal silhouette is unremarkable. The bones are intact.IMPRESSION: No acute abnormalityElectronically signed by: Rudy Orta MD 05/10/2021 3:00 PM CDT HEAD W/O [id number] 14:59:58 [facility] 1960 Sex: FEXAMINATION:CT HEAD W/O CONTRASTCLINICAL INDICATION:Female, 61 years old with HeadacheTECHNIQUE: Axial CT images fromthe skull base to the vertex without intravenous contrast. Coronal and sagittal reformatted images were created from the data set.One or more of the following dose reduction techniques were used: Automated exposure control, adjustment of the mA and/or kV according to patient size, and/or iterative reconstruction. COMPARISON: NoneFINDINGS:Intracranial: No abnormal brain parenchymal density. No evidence of acute infarction, intracranial hemorrhage, mass or mass effect, or abnormal extra-axial fluid collection. The ventricles are normal in size, shape and position.Vascular: The larger dural venous sinuses are grossly normal. No significant atherosclerotic plaque.Sinuses: The visualized paranasal sinuses and mastoid air cells are predominantly clear. Bones: The osseous structures and orbits have no significant abnormalities. Soft tissue: No significant soft tissue abnormalities. IMPRESSION:No acute intracranial abnormality.Electronically signed by: Jeffy Kapoor MD 05/10/2021 2:59 PM CDT [id number] STREP GROUP [id number] 12:16:00* Test Item Value Reference Range Interpretation Comme nts Culture Observations (test code = COB1) NO BETA HEMOLYTIC STREPTOCOCCUS ISOLATED Direct Exam (test code = DE1) NEGATIVE FOR STREP A ANTIGEN GLUCOMETER GLUCOSE- LAB USE [id number] 13:50:00* Test Item Value Reference Range Interpretation Comme nts GLUCOMETER (test code = GMG) 231 mg/dL 70-100 H Result Not ConfirmedMeter ID: [id number]: [id number] SUJATA GOMES SARS-CoV (RAPID ANTIGEN)2020-04-03 13:06:00* Test Item Value Reference Range Interpretation Comme nts SARS-CoV (ANTIGEN) (test code = COVAG) NEGATIVE NEGATIVE COVID AG (test code = COVAGC) This test has been marketed under the FDA Emergency Use Authorization (EUA) to meet challenges of the COVID-19 pandemic. The validation standards normally enforced by the FDA and the [employer] the [employer] (CAP) are more stringent than those required for this test. Therefore, the result should be interpreted with caution and close attention to other clinical and epidemiological data C-REACTIVE PROTEIN [id number] 11:51:00* Test Item Value Reference Range Interpretation Comme nts CRP (test code = CRP) NEGATIVE (<6MG/L) NEGATIVE (<6MG/L) BRAIN NATRIURETIC [id number] 11:38:00* Test Item Value Reference Range Interpretation Comme nts proBNP (test code = PBNP) 58 pg/mL 0-125 [id number] 11:38:00* Test Item Value Reference Range Interpretation Comme nts FERRITIN (test code = A19) 132.3 ng/mL 8.0-252.0 TROPONIN [id number] 11:33:00* Test Item Value Reference Range Interpretation Comme nts TROPONIN I (test code = A84) <0.015 ng/mL 0.000-0.045 [id number] 11:31:00* Test Item Value Reference Range Interpretation Comme nts CPK (test code = 32A) 55 IU/L 26-192 COMPREHENSIVE METABOLIC [id number] 11:31:00* Test Item Value Reference Range Interpretation Comme nts GLUCOSE (test code = 06D) 400 mg/dL 75-100 H SODIUM (test code = 01A) 137 mmol/L 136-145 POTASSIUM (test code = 01B) 4.8 mmol/L 3.6-5.1 CHLORIDE (test code = 04A) 105 mmol/L 98-107 CO2 (test code = 02A) 26 mmol/L 22-32 ANION GAP (test code = ANG) 10.8 mmol/L BUN (test code = 05D) 7 mg/dL 7-18 CREATININE (test code = 03E) 0.7 mg/dL 0.4-1.1 GFR (test code = GFR) 90 mL/min/1.73m\\S\\2 >=90 GFR (test code = GFRAA) 104 mL/min/1.73m\\S\\2 >=90 EGFR (test code = EGFR) eGFR BY CKD-EPI CALCULATION IS NOT RECOMMENDED FOR PATIENTS UNDER 18 YEARS OF AGE. BUN/CREA (test code = BCR) 10 12-20 L CALCIUM (test code = 09D) 8.8 mg/dL 8.3-9.5 BILI TOTAL (test code = 11A) 0.4 mg/dL 0.2-1.0 PROTEIN (test code = 07D) 7.5 g/dL 6.4-8.2 ALBUMIN (test code = 08D) 3.8 g/dL 3.5-4.8 GLOBULIN (test code = GLB) 3.7 g/dL 1.5-3.8 ALB/GLOB (test code = AGRR) 1.0 1.0-2.6 ALK PHOS (test code = 35A) 60 IU/L 42-121 AST (test code = 30A) 35 IU/L <=42 ALT (test code = 31A) 47 IU/L <=78 LDH-LACTIC [id number] 11:30:00* Test Item Value Reference Range Interpretation Comme nts LDH (test code = 33A) 199 IU/L 100-190 H [id number] 11:25:00* Test Item Value Reference Range Interpretation Comme nts MAGNESIUM (test code = 48A) 2.2 mg/dL 1.8-2.4 PRO TIME AND [id number] 11:23:00* Test Item Value Reference Range Interpretation Comme nts PT (test code = TT) 12.4 s 9.8-13.6 INR (test code = INR) 1.1 INRH (test code = INRH) SUGGESTED THERAPEUTIC RANGE FOR INR: 2.5 - 3.5 For Patients with Prosthetic Valves or Patients with recurrent Thromboembolic Events 2.0 - 3.0 For Most Other Applications PTT (test code = PTT) 29.7 s 20.2-38.0 PTTH (test code = PTTH) To monitor the effectiveness of heparin, we offer the Anti-Xa (Heparin Assay). It can be used for either unfractionated or LMW Heparin. Order Code is ANTI-XA [id number] 11:23:00* Test Item Value Reference Range Interpretation Comme nts D-DIMER (test code = DDI) <200 ng/mL D-DU 0-234 D-DIMER COMMENT (test code = DDCOM) *Level to rule out DVT or PE: <235 ng/mL D-DU* [id number] 11:18:00* Test Item Value Reference Range Interpretation Comme nts COLOR (test code = COLU) YELLOW YELLOW CLARITY (test code = CLA) CLEAR CLEAR GLUCOSE UR (test code = UA GLUCOSE) 3+ NEGATIVE A BILI UR (test code = BILE) NEGATIVE NEGATIVE KETONES UR (test code = DAGOBERTO) NEGATIVE NEGATIVE SP GRAVITY (test code = SPGR) 1.035 1.005-1.030 H PH UR (test code = PH) 6.0 4.5-8.0 PROTEIN UR (test code = PU) NEGATIVE NEGATIVE UROBIL UR (test code = UROQ) 0.2 EU/dL 0.2-1.0 NITRITE UR (test code = NITRITE) NEGATIVE NEGATIVE BLOOD UR (test code = UA BLOOD) NEGATIVE NEGATIVE LEUK ES UR (test code = LEUK) NEGATIVE NEGATIVE CBC (INCLUDES AUTOMATED DIFFERENTIAL)2020-04-03 11:17:00* Test Item Value Reference Range Interpretation Comme nts WBC (test code = WBC) 4.6 10\\S\\3/uL 4.5-11.0 RBC (test code = RBC) 5.00 10\\S\\6/uL 4.20-5.60 HGB (test code = HBG) 14.3 g/dL 12.0-15.5 HCT (test code = HCT) 42.6 % 35.0-44.0 MCV (test code = MCV) 85.2 fL 81.0-99.0 MCH (test code = MCH) 28.6 pg 27.0-31.0 MCHC (test code = MCHC) 33.6 g/dL 32.0-36.0 RDW (test code = RDW) 13.0 % 11.5-14.5 PLT (test code = PLT) 139 10\\S\\3/uL 130-400 MPV (test code = MPV) 10.7 fL 9.4-12.4 NEUTROP # (test code = NE#) 2.8 10\\S\\3/uL 1.6-8.0 LYMPH # (test code = LY#) 1.4 10\\S\\3/uL 1.1-3.5 MONOCYTE # (test code = MO#) 0.3 10\\S\\3/uL 0.0-1.1 EOSINOPH # (test code = EO#) 0.1 10\\S\\3/uL 0.0-0.7 BASOPHIL # (test code = BA#) 0.0 10\\S\\3/uL 0.0-0.3 IG # (test code = IG#) 0.01 10\\S\\3/uL 0.00-0.06 NRBC # (test code = NRBC#) 0.00 10\\S\\3/uL 0.00-0.01 NEUTROPH % (test code = NE%) 60.3 % 35.0-73.0 LYMPH % (test code = LY%) 30.5 % 20.0-55.0 MONO % (test code = MO%) 7.5 % 2.5-10.0 EOSINOPH % (test code = EO%) 1.1 % 0.0-5.0 BASOPHIL % (test code = BA%) 0.4 % 0.0-2.0 IG % (test code = IG%) 0.2 % 0.0-0.8 NRBC% (test code = NRBC%) 0.0 % 0.0-0.2 MANDIFF (test code = MDIFF) NO NO RBC MORPH (test code = RBCMOR) NORMAL DIRECT INFLUENZA A AND B [id number] 10:59:00* Test Item Value Reference Range Interpretation Comme nts Direct Exam (test code = DE1) PRESUMPTIVE NEGATIVE FOR THE PRESENCE OF INFLUENZA ANTIGEN Consult Notes Date/Time Note Provider Source 2024-08-22 11:19:21 Associated Order(s): CONSULT [facility]ARDIOLOGY [facility] Cardiology Consult PCP: Miguel Stauffer Date of Service: 08/22/2024 CHIEF COMPLAINT/reason for consult: Hypertension, pulm edema HISTORY OF PRESENT ILLNESS Valerie Hill is a 64 years old female with past med history of obesity, hypertension, hyperlipidemia, cigarette smoker and diabetes. For the past few days she has been having progressive dyspnea exertion. Precordial chest pain during deep breaths. No exertional chest pain. Her blood pressure has been elevated. Initial blood pressure in urgency range. CT scan showed mild interstitial changes. BNP was elevated. Troponin has been negative. She gained a few pounds recently. PAST MEDICAL HISTORY Past Medical History: Diagnosis Date Diabetes mellitus Hyperlipidemia Hypertension History reviewed. No pertinent surgical history. History reviewed. No pertinent family history. ALLERGIES No Known Allergies MEDICATIONS No current facility-administered medications on file prior to encounter. Current Outpatient Medications on File Prior to Encounter Medication Sig Dispense Refill cetirizine HCl (ZYRTEC ORAL) Take by mouth. Fenofibrate 40 mg Tab Take by mouth. fluticasone propionate (FLONASE NASAL) Use in each nostril. losartan 100 mg tablet Take 1 tablet by mouth in the morning. MELOXICAM ORAL Take by mouth. metFORMIN 1,000 mg 24 hr tablet Take 1 tablet by mouth in the morning and 1 tablet in the evening. carvediloL 3.125 mg tablet Take 1 tablet by mouth in the morning and 1 tablet in the evening. Take with meals. Do all this for 30 days. 60 tablet 0 SOCIAL HISTORY Social History Socioeconomic History Marital status: Tobacco Use Smoking status: Every Day Current packs/day: 1.00 Average packs/day: 1 pack/day for 40.9 years (40.9 ttl pk-yrs) Types: Cigarettes Start date: 1983 Passive exposure: Past Substance and Sexual Activity Alcohol use: Yes Alcohol/week: 3.0 standard drinks of alcohol Types: 3 Glasses of wine per week Drug use: Not Currently Types: Cocaine REVIEW OF SYSTEMS At least 10 systems reviewed, negative except as mentioned in HPI PHYSICAL EXAMINATION Vitals: 08/21/24 2100 08/21/24 2310 08/22/24 0347 08/22/24 0731 BP: (!) 141/73 135/69 (!) 155/76 Pulse: 77 71 78 Resp: 20 18 19 Temp: 36.3 ?C (97.4 ?F) 36.1 ?C (96.9 ?F) 36.2 ?C (97.2 ?F) TempSrc: Temporal Artery Temporal Artery SpO2: 93% 94% 96% Weight: 83.9 kg (185 lb) 84.5 kg (186 lb 3.2 oz) Height: 1.588 m (5' 2.5") Constitutional: alert and oriented x 3 (person, place and date/time); no apparent distress, obese ENT: normocephalic atraumatic, supple, no lymphadenopathy, no bruits, no JVD Lungs: clear to auscultation bilaterally Cardiovascular: S1, S2 normal, regular; no murmurs, rubs or gallops GI: soft; non-tender; non-distended; normoactive bowel sounds : not examined Musculoskeletal: Extremities: no clubbing, cyanosis, or edema Skin: no rashes Neuro: no focal deficits LABS - reviewed pertinent labs as below: CBC BMP PT/INR WBC (10*3/?L) Date Value 08/21/2024 7.39 NA (mmol/L) Date Value 08/22/2024 138 No results found for: "PT" PLT (10*3/?L) Date Value 08/21/2024 164 (L) K (mmol/L) Date Value 08/22/2024 3.9 No results found for: "PTINR" HGB (g/dL) Date Value 08/21/2024 12.2 BUN (mg/dL) Date Value 08/22/2024 13 HCT (%) Date Value 08/21/2024 37.5 CREATININE (mg/dL) Date Value 08/22/2024 0.56 LIPID PROFILE GLUCOSE (mg/dL) Date Value 08/22/2024 126 (H) CHOL (mg/dL) Date Value 08/22/2024 178 TSH LDL CHOL (mg/dL) Date Value 08/22/2024 112 TSH (mIU/L) Date Value 08/21/2024 4.17 CARDIAC ENZYMES HDL (mg/dL) Date Value 08/22/2024 39 (L) No results found for: "CK" TRIG (mg/dL) Date Value 08/22/2024 135 LFTs No results found for: "CKMB" AST(SGOT) (U/L) Date Value 08/21/2024 33 TROPONIN I (ng/mL) Date Value 08/22/2024 0.007 ALTv (U/L) Date Value 08/21/2024 33 No results found for: "BNP" IMAGING - reviewed, pertinent results as below: Chest p-myi-uiwyyclkb edema EKG: Normal sinus rhythm, anterior infarct, lateral T wave inversion ASSESSMENT/PLAN Principal Problem: Shortness of breath Active Problems: Elevated blood pressure reading Elevated d-dimer Acute congestive heart failure, unspecified heart failure type Obesity (BMI 30-39.9) Hypertensive emergency Cigarette smoker Other hyperlipidemia Type 2 diabetes mellitus without complication, without long-term current use of insulin Hypertension/hypertensive emergency-her blood pressure seems to be chronically elevated. Coughing reaction to lisinopril. Currently on Coreg and losartan. Watch blood pressure for adjustment. Discussed the low-salt diet and weight loss. Recommend outpatient sleep study to assess obstruct sleep apnea. BNP elevation-progressive dyspnea on exertion. CT scan chest showed mild interstitial changes. Likely due to hypertensive emergency. Recommend aggressive blood pressure control. Echocardiogram to assess ejection fraction, hemodynamics. Obesity-recommend outpatient sleep study to assess obstruct sleep apnea. Recommend diet, exercise and weight loss. Cigarette smoker-discussed smoking cessation. Hyperlipidemia-continue fenofibrate. Thank you for allowing us to participate in the care of your patient. Please feel free to contact us for any questions or if we can be of further assistance. Jacques Vo MD, FACC, [employer] Analysis Advisor Division of Cardiovascular Medicine [facility] - Health History and Physical Notes Date/Time Note Provider Source 2024-08-22 02:01:15 Medicine History & Physical Date of Service: 08/22/2024 Pt presents from: Home CC: Chest pain History of Present Illness: Valerie Hill is a 64 year old female with past md hx of diabetes, hypertension and hyperlipidemia that presents to the ED for chest pain. Patient states she was home this past when she developed severe chest pain in the center of her chest with shortness of breath. Pain did not radiate anywhere nor was it associated with any activity. Due to worsening pain she decided to come to the ED for evaluation. Emergency department chest pain did improve. She was noted on admission to have blood pressure of 215/92. Initial labs show no leukocytosis. Chemistry shows elevated proBNP P of 1000 troponin is negative. Noted hemoglobin A1c of 6.[address] a [address] chest with pulmonary angiogram showed no PE noted cirrhosis of the liver with splenomegaly and cholelithiasis. Hospitalist call for admission. On exam she is chest pain-free denies shortness of breath. States compliance with home meds she does drink and smoke. Denies drugs ROS: Pt denies F / N / V / D / Constipation / CP / SOB / cough / Abd pain / dysuria / hematuria / melena / hematochezia / rashes / suicidal or homicidal ideation / All others negative Review of Hx/Meds: PMH: Past Medical History: Diagnosis Date Diabetes mellitus Hyperlipidemia Hypertension PSH: has no past surgical history on file. Family Hx: Noncontributory unless mentioned above Social History Tobacco Use Smoking status: Every Day Current packs/day: 1.00 Average packs/day: 1 pack/day for 40.9 years (40.9 ttl pk-yrs) Types: Cigarettes Start date: 1983 Passive exposure: Past Substance Use Topics Alcohol use: Yes Alcohol/week: 3.0 standard drinks of alcohol Types: 3 Glasses of wine per week Drug use: Not Currently Types: Cocaine Current Scheduled Medications Current IV Current Facility-Administered Medications: carvediloL (COREG) tablet 6.25 mg, 6.25 mg, Oral, BID MEALS, Darvin Rehman DO fenofibrate micronized (LOFIBRA) capsule 67 mg, 67 mg, Oral, DAILY, Darvin Rehman DO losartan (COZAAR) tablet 100 mg, 100 mg, Oral, DAILY, Darvin Rehman DO meloxicam (MOBIC) tablet 7.5 mg, 7.5 mg, Oral, QDAILYPRN, Darvin Rehman DO acetaminophen (TYLENOL) tablet 650 mg, 650 mg, Oral, Q6HPRN, Darling Zavala MD dextrose 50 % in water (D50W) injection 25 mL, 25 mL, Slow IV Push, PRN, Darling Zavala MD enoxaparin (LOVENOX) injection 40 mg, 40 mg, Subcutaneous, DAILY, Darling Zavala MD glucagon HCL injection 1 mg, 1 mg, Intramuscular, PRN, Darling Zavala MD HYDROcodone-acetaminophen (NORCO 5) tablet 1 tablet, 1 tablet, Oral, Q6HPRN, Darling Zavala MD morpHINE (4 mg/mL) injection 4 mg, 4 mg, Slow IV Push, Q4HPRN, Alexandria Zavalai, MD nitroglycerin (NITROSTAT) sublingual tablet 0.4 mg, 0.4 mg, Sublingual, Q5MIN PRN, Darling Zavala MD ondansetron (ZOFRAN (PF)) injection 4 mg, 4 mg, Slow IV Push, Q6HPRNLucas Jelani, MD Sliding Scale Insulin - Lispro (HumaLOG), , Subcutaneous, TID MEALS+HS, Darling Zavala MD, 1 Units at 08/21/24 2130 Objective: Vitals: Vitals: 08/21/24 2030 08/21/24204408/21/24 2100 08/21/24 2310 BP: (!) 146/75 (!) 145/74 (!) 141/73 Pulse: 82 80 77 Resp: 20 Temp: 36.2 ?C (97.1 ?F) 36.3 ?C (97.4 ?F) TempSrc: Temporal Artery Temporal Artery SpO2: 95% 93% 93% Weight: 83.9 kg (185 lb) Height: 1.588 m (5' 2.5") I/O's: No intake or output data in the 24 hours ending 08/22/24 0201 Physical Exam: General: NAD, Alert, lying in bed comfortable, cogent speech. HEENT: anicteric, oral mucosa dry Neck: supple, no JVD, no bruits. Chest: CTA B/L, no W/R/C. Heart: RRR, S1/S2, no M/G/R Abdominal: BS normoactive, soft, ND, NT. Skin/Extremities: no rash, no cyanosis, warm and dry, no LE edema. Neurological: CN II-XII grossly intact, no focal deficits. Labs: BMP:BMP NA (mmol/L) Date Value 08/21/2024 140 08/19/2024 138 K (mmol/L) Date Value 08/21/2024 4.2 08/19/2024 3.4 (L) CALCIUM (mg/dL) Date Value 08/21/2024 9.8 08/19/2024 9.4 CL (mmol/L) Date Value 08/21/2024 104 08/19/2024 103 BUN (mg/dL) Date Value 08/21/2024 15 08/19/2024 11 CREATININE (mg/dL) Date Value 08/21/2024 0.59 08/19/2024 0.49 (L) GLUCOSE (mg/dL) Date Value 08/21/2024 111 (H) 08/19/2024 219 (H) CO2 TOTAL (mmol/L) Date Value 08/21/2024 30 08/19/2024 26 CBC:CBC WBC (10*3/?L) Date Value 08/21/2024 7.39 RBC (10*6/?L) Date Value 08/21/2024 4.46 PLT (10*3/?L) Date Value 08/21/2024 164 (L) HGB (g/dL) Date Value 08/21/2024 12.2 HCT (%) Date Value 08/21/2024 37.5 BMP:Hepatic Function Panel ALBUMIN (g/dL) Date Value 08/21/2024 4.7 T PROTEIN (g/dL) Date Value 08/21/2024 7.6 TOTAL BILI (mg/dL) Date Value 08/21/2024 0.5 ALTv (U/L) Date Value 08/21/2024 33 AST(SGOT) (U/L) Date Value 08/21/2024 33 ALK PHOS (U/L) Date Value 08/21/2024 37 Troponin: Recent Labs 08/21/24 2309 TROPNI 0.009 I have reviewed all relevant labs Imaging: CT CHEST PULMONARY ANGIOGRAM Result Date: 08/21/2024 PROCEDURE: CT CHEST WITH CONTRAST- CHEST PE PROTOCOL CLINICAL INDICATION: Pulmonary embolism (PE) suspected, positive D-dimer COMPARISON: None TECHNIQUE: Volumetric helical CT angiogram was performed of the chest (lung apices to bases) with IV contrast. Images were reconstructed at 1.25 mm slice thickness. Corresponding axial, sagittal and coronal MIP images were performed. Axial MIPs and coronal and sagittal MPR images were generated and reviewed.. FINDINGS: DEVICES: None HEART AND GREAT VESSELS: The opacification of the pulmonary vasculature is appropriate. No filling defects are seen through the level of the segmental pulmonary arteries. The pulmonary trunk is normal in caliber. The thoracic aorta is normal in caliber. The heart is normal in size. No pericardial abnormalities are identified. The RV to LV is normal. MEDIASTINUM AND LOWER NECK: No central airway lesions are detected. The esophagus is within normal limits. The included thyroid gland appears normal. LYMPH NODES: Scattered small lymph nodes in both sides of the mediastinum and hilar regions. No evidence of intrathoracic lymphadenopathy. LUNGS AND PLEURA: The lungs are well-expanded and clear. Interlobular septal thickening noted in both lower lobes. Mild centrilobular emphysematous changes are seen. Scattered calcified granulomas are noted. No focal opacities are identified. No suspicious nodules. No pleural abnormality detected. VISUALIZED UPPER ABDOMEN: Cirrhotic liver with splenomegaly. Cholelithiasis. OSSEOUS STRUCTURES AND SOFT TISSUES: No focal osseous lesions are detected. The soft tissues appear normal. 1. No evidence of pulmonary embolism through the level of the subsegmental branches. AIDOC (computer aided detection software) confirms no filling defects in the pulmonary artery branches. 2. No acute intrathoracic abnormality. 3. Mild interstitial pulmonary edema. 4. Cirrhotic liver with splenomegaly. 5. Cholelithiasis. CT HEAD WO CONTRAST Result Date: 08/19/2024 EXAM: CT HEAD WO CONTRAST HISTORY: Dizziness. TECHNIQUE: Axial CT of the head was performed and reconstructed at 5 mm intervals. Coronal and sagittal reformatted images were generated. COMPARISON: None FINDINGS: The ventricles and cerebral sulci are normal in caliber and configuration. No midline shift or pathological extra-axial fluid collection is present. The basal cisterns are unremarkable. No acute intracranial hemorrhage or significant mass effect is visualized. No parenchymal attenuation abnormality is seen. The lopez-white matter differentiation is preserved. The mastoid air cells and visualized paranasal air sinuses are clear. The calvarium and central skull base are unremarkable. No acute intracranial abnormality. Preliminary Report Dictated by Resident: Sy Polanco MD., have reviewed this study and agree with the above report. Assessment and plan: Principal Problem: Shortness of breath Active Problems: Elevated blood pressure reading Elevated d-dimer Acute congestive heart failure, unspecified heart failure type Obesity (BMI 30-39.9) Chest pain: - Start telemetry - Cardiology consult - Follow-up troponin cycle - Follow-up cardiac echo - Follow-up lipid panel - Continue Coreg - Continue aspirin Hypertensive urgency: Noted chest pain but troponin cycles negative, improved - Continue Coreg and losartan Hyperlipidemia - Follow-up lipid panel - Continue low fiber Diabetes: - Hold oral meds - Start insulin sliding scale DVT prophylaxis: Lovenox Advanced Care Planning ( Z71.89 ) Above assessment and plan discussed at length with patient, patient expressed full understanding. Questions and concerns addressed I spent 1 minutes discussing the advance care planning. Advanced Directive Maker: Patient Level of comfort: N/A Code Status: Full Tobacco user (Z71.6) Patient counseled at length and Pt expressed full understanding, Time discussed 3 minutes [place] G[employer] OR MUSEUM CURATOR was verified Disposition: Admit follow-up cardiology evaluation and cardiac echo, follow-up troponin cycle [facility]
[2024-09-22 12:54] LABS: Absolute Eosinophils 0.1 K/uL (0-0.5); Absolute Lymphocytes (CBC) 1.9 K/uL (0.7-4.9); Absolute Monocytes 0.5 K/uL (0.1-1.3); Absolute Neutrophil 3.5 K/uL (1.8-8.0); Basophils % 0.5 % (0-1.3); Eosinophils % 2.3 % (0-4.4); Hematocrit 37.7 % (36.0-45.0); Hemoglobin 12.1 g/dL (12.0-15.0); Lymphocytes % 31.2 % (15.3-44.8); MCH 26.6 pg (27.0-35.0); MCHC 32.1 g/dL (32.0-36.0); MCV 82.7 fL (80-100); MPV 7.9 fL (7.6-11.3); Nucleated Red Blood Cells % 0.1 % (0-0); Platelets 200 thou/uL (152-406); RBC Red Blood Cell Count 4.55 M/uL (3.86-4.86); Red Cell Distribution Width 13.7 % (12.1-15.2)
[2024-09-22 12:55] LABS: PT Prothrombin Time 12.5 SECONDS (9.4-12.5); Protime INR 1.12
[2024-09-22 13:09] LABS: Anion Gap 8.6 mEq/L (5.0-15.0); Potassium 3.6 mEq/L (3.5-5.1); Troponin High Sensitivity 8.8 pg/mL (<58.9)
--- NOTE | 2024-09-22 13:13 | RAD REPORT ---
Procedure: Chest Single View HISTORY: sob COMPARISON: none FINDINGS: The lungs appear clear of acute infiltrate. No significant pleural effusion noted. The heart is normal size. IMPRESSION: No acute abnormality is displayed.
--- NOTE | 2024-09-22 13:26 | ER ---
Nurse's Notes [facility] Name: Bhumika Hill Age: 64 yrs Sex: Female : 1960 Arrival Date: 09/22/2024 Time: 11:04 Bed 19 Private MD: Diagnosis: Shortness of breath;Essential (primary) hypertension Presentation: 09/22 11:21 Chief complaint: Patient states: diagnosed with pneumonia a week ago. I have been tm6 taking the antibiotics but I have not gotten better. It is still hard to breathe, still having cough. Coronavirus screen: Client denies travel out of the [place] in the last 14 days. Ebola Screen: Patient negative for fever greater than or equal to 101.5 degrees Fahrenheit, and additional compatible Ebola Virus Disease symptoms Patient denies exposure to infectious person. Patient denies travel to an Ebola-affected area in the 21 days before illness onset. No symptoms or risks identified at this time. Initial Sepsis Screen: Does the patient meet any 2 criteria? RR > 20 per min. Does the patient have a suspected source of infection? No. Patient's initial sepsis screen is negative. Risk Assessment: Do you want to hurt yourself or someone else? Patient reports no desire to harm self or others. Onset of symptoms was September 15, 2024. 11:21 Method Of Arrival: Ambulatory tm6 11:21 Acuity: BILL 3 tm6 Triage Assessment: 11:21 General: Appears in no apparent distress. Behavior is calm, cooperative. Pain:. Pain: tm6 Complains of pain in anterior aspect of left lateral abdomen. EENT: No signs and/or symptoms were reported regarding the EENT system. Neuro: Level of Consciousness is awake, alert, obeys commands, Oriented to person, place, time, situation. Neuro: Cardiovascular: Patient's skin is warm and dry. Respiratory: Reports shortness of breath labored breathing pain with respiration. Respiratory: Onset: The symptoms/episode began/occurred a week ago, the patient has mild shortness of breath. GI: No signs and/or symptoms were reported involving the gastrointestinal system. Abdomen is flat, non-distended. : No signs and/or symptoms were reported regarding the genitourinary system. Derm: No signs and/or symptoms reported regarding the dermatologic system. Musculoskeletal: Reports pain with respiration. Historical: - Allergies: 11:20 No Known Allergies; tm6 - PMHx: 11:20 Diabetes mellitus; Hypertensive disorder; blood clot; tm6 - PSHx: 11:20 None; tm6 - Immunization history:: Flu vaccine is up to date. - Infectious Disease History:: Denies. - Social history:: Smoking status: Patient reports the use of cigarette tobacco products, smokes one-half pack cigarettes per day. Screenin:46 [facility] ED Fall Risk Assessment (Adult) History of falling in the last 3 months, ap3 including since admission No falls in past 3 months (0 pts) Confusion or Disorientation No (0 pts) Intoxicated or Sedated No (0 pts) Impaired Gait No (0 pts) Mobility Assist Device Used No (0 pt) Altered Elimination No (0 pt) Score/Fall Risk Level 0 - 2 = Low Risk Oriented to surroundings, Maintained a safe environment, Educated pt \T\ family on fall prevention, incl call for assistance when getting out of bed, Assessed \T\ reinforced patient's understanding of fall precautions, Hourly rounding (assess needs \T\ fall precautionary measures) done, Used ambulatory aids as needed (educated on \T\ assisted with), Used gait belt as appropriate. Abuse screen: Denies threats or abuse. Nutritional screening: No deficits noted. Tuberculosis screening: No symptoms or risk factors identified. Assessment: 12:45 General: Appears in no apparent distress. Behavior is calm, cooperative, appropriate ap3 for age. Pain: Complains of pain in chest Aggravated by breathing and coughing. 12:45 Neuro: Level of Consciousness is awake, alert, obeys commands, Oriented to person, ap3 place, time, situation, Appropriate for age Speech is normal. Cardiovascular: Patient's skin is warm and dry. Respiratory: Airway is patent Respiratory effort is even, unlabored, Respiratory pattern is regular, symmetrical. Respiratory: Reports cough that is pain with cough. 13:33 Cardiovascular: Rhythm is regular. Respiratory: Breath sounds are clear. ap3 Vital Signs: 11:19 BP 162 / 73; Pulse 71; Resp 20; Temp 98.6(O); Pulse Ox 97% on R/A; MAP 100 mmHg; Weight tm6 83.91 kg; Height 5 ft. 2 in. ; Pain 4/10; 12:44 Pulse 88; Pulse Ox 98% on R/A; ap3 11:19 Body Mass Index 33.84 (83.91 kg, 157.48 cm) tm6 11:19 Pain Scale: Adult tm6 ED Course: 11:09 Patient arrived in ED. ra3 11:20 Silvano Lawrence DO is Attending Physician. ms3 11:21 Arm band placed on right wrist. tm6 11:22 Triage completed. tm6 12:23 Kim Valdez, RN is Primary Nurse. ap3 12:43 Patient has correct armband on for positive identification. Placed in gown. Bed in low ap3 position. Call light in reach. Side rails up X 1. Adult w/ patient. Provided Education on: call light education. Client placed on continuous cardiac and pulse oximetry monitoring. NIBP monitoring applied. electronic device monitor on. Pulse ox on. NIBP on. 12:43 Initial lab(s) drawn, by me, sent to lab. Inserted saline lock: 22 gauge in right ap3 antecubital area, using aseptic technique. Blood collected. Flushed with 10 mL NS. 12:50 XRAY Chest (1 view) In Process Unspecified. EDMS 13:02 EKG done, by ED staff, reviewed by Silvano Lawrence DO. ap3 13:33 No provider procedures requiring assistance completed. IV discontinued, intact, ap3 bleeding controlled, No redness/swelling at site. Pressure dressing applied. Administered Medications: No medications were administered Medication: 12:46 VIS not applicable for this client. ap3 Outcome: 13:26 Discharge ordered by MD. ms3 13:33 Discharged to home ambulatory, ap3 13:33 Condition: good 13:33 Discharge instructions given to patient, Instructed on discharge instructions, follow up and referral plans. Demonstrated understanding of instructions, follow-up care, 13:38 Patient left the ED. ap3 Signatures: Dispatcher [employer] EDMS Kim Valdez, RN RN ap3 Silvano Lawrence DO DO ms3 Jarrett Rankin RN RN tm6 Marlene Briceno ra3
--- NOTE | 2024-09-22 13:26 | EDPHYS ---
Physician Documentation [facility] Name: Bhumika Hill Age: 64 yrs Sex: Female : 1960 Arrival Date: 09/22/2024 Time: 11:04 Bed 19 Private MD: ED Physician Silvano Lawrence HPI: 09/22 11:26 This 64 yrs old Female presents to ER via Ambulatory with complaints of Breathing ms3 Difficulty. 11:26 A 1 month history of shortness of breath. Patient says she was diagnosed with ms3 congestive heart failure 1 month ago and 1 week ago she was diagnosed with pneumonia. Patient states she has not had improvement despite being on 1 week of azithromycin and cefdinir. Patient denies fevers, chills, nausea, vomiting. Patient states her shortness of breath is worse with walking. She states her discomfort is a 4/10.. Historical: - Allergies: 11:20 No Known Allergies; tm6 - PMHx: 11:20 Diabetes mellitus; Hypertensive disorder; blood clot; tm6 - PSHx: 11:20 None; tm6 - Immunization history:: Flu vaccine is up to date. - Infectious Disease History:: Denies. - Social history:: Smoking status: Patient reports the use of cigarette tobacco products, smokes one-half pack cigarettes per day. ROS: 11:26 Constitutional: Negative for fever, and chills. Cardiovascular: Negative for chest ms3 pain, and palpitations. 11:26 Abdomen/GI: Negative for abdominal pain, nausea, vomiting, diarrhea, and constipation, MS/Extremity: Negative for injury and deformity, Skin: Negative for injury, rash, and discoloration, 11:26 Respiratory: Positive for dyspnea on exertion, shortness of breath, Exam: 11:26 Constitutional: This is a well developed, well nourished patient who is awake, alert, ms3 and in no acute distress. Head/Face: Normocephalic, atraumatic. Chest/axilla: Normal chest wall appearance and motion. Nontender with no deformity. Cardiovascular: Regular rate and rhythm with a normal S1 and S2. No gallops, murmurs, or rubs. Normal PMI, no JVD. No pulse deficits. Respiratory: Lungs have equal breath sounds bilaterally, clear to auscultation and percussion. No rales, rhonchi or wheezes noted. No increased work of breathing, no retractions or nasal flaring. Abdomen/GI: Soft, non-tender, with normal bowel sounds. No distension or tympany. No guarding or rebound. No evidence of tenderness throughout. Skin: Warm, dry with normal turgor. Normal color with no rashes, no lesions, and no evidence of cellulitis. MS/ Extremity: Pulses equal, no cyanosis. Neurovascular intact. Full, normal range of motion. 15:47 ECG was reviewed by the Attending Physician. ms3 Vital Signs: 11:19 BP 162 / 73; Pulse 71; Resp 20; Temp 98.6(O); Pulse Ox 97% on R/A; MAP 100 mmHg; Weight tm6 83.91 kg; Height 5 ft. 2 in. ; Pain 4/10; 12:44 Pulse 88; Pulse Ox 98% on R/A; ap3 11:19 Body Mass Index 33.84 (83.91 kg, 157.48 cm) tm6 11:19 Pain Scale: Adult tm6 MDM: 11:21 Medical Screening Exam initiated ms3 11:26 Differential diagnosis: CHF exacerbation, Chronic Obstructive Pulmonary Disease ms3 pneumonia. 15:47 Data reviewed: vital signs, nurses notes, lab test result(s), EKG, radiologic studies, ms3 and as a result, I will discharge patient. Independent interpretation of the following test(s) in the Emergency Department EKG: See my EKG interpretation above. Counseling: I had a detailed discussion with the patient and/or guardian regarding the historical points, exam findings, and any diagnostic results supporting the discharge/admit diagnosis, lab results, radiology results, the need for outpatient follow up, to return to the emergency department if symptoms worsen or persist or if there are any questions or concerns that arise at home. Special discussion: Based on the patient's history, exam, and Dx evaluation, there is no indication for emergent intervention or inpatient Tx. It is understood by the patient/guardian that if the Sx's persist or worsen they need to return immediately for re-evaluation. ED course: Discussed EKG, x-ray findings, labs with patient. Patient asymptomatic, alert and orient x 4, no apparent distress, ambulatory emerged Yin, speaking full sentences. Patient to follow-up with Dr. Pacheco and Dr. Rivas in 2 to 3 days. Patient understands and agrees with plan. All questions were answered. Return precautions discussed include worsening symptoms, or any other concerns. 09/22 11:20 Order name: Basic Metabolic Panel; Complete Time: 13:16 ms3 09/22 11:20 Order name: CBC with Diff; Complete Time: 13:16 ms3 09/22 11:20 Order name: Magnesium; Complete Time: 13:16 ms3 09/22 11:20 Order name: NT PRO-BNP; Complete Time: 13:16 ms3 09/22 11:20 Order name: PT-INR; Complete Time: 13:16 ms3 09/22 11:20 Order name: Troponin HS; Complete Time: 13:16 ms3 09/22 11:20 Order name: XRAY Chest (1 view); Complete Time: 13:16 ms3 09/22 11:20 Order name: EKG; Complete Time: 11:21 ms3 09/22 11:20 Order name: Cardiac monitoring; Complete Time: 12:44 ms3 09/22 11:20 Order name: EKG - Nurse/Tech; Complete Time: 13:02 ms3 09/22 11:20 Order name: IV Saline Lock; Complete Time: 12:44 ms3 09/22 11:20 Order name: Labs collected and sent; Complete Time: 12:44 ms3 09/22 11:20 Order name: O2 Per Protocol; Complete Time: 12:44 ms3 09/22 11:20 Order name: O2 Sat Monitoring; Complete Time: 12:44 ms3 EC:47 Rate is 69 beats/min. Rhythm is regular. QRS [place] is Normal. ID interval is normal. QRS ms3 interval is normal. Clinical impression: NSR w/ Non-specific ST/T Changes. Interpreted by me. Reviewed by me. Administered Medications: No medications were administered Disposition Summary: 09/22/24 13:26 Discharge Ordered Notes: Location: Home ms3 Condition: Stable ms3 Diagnosis - Shortness of breath ms3 - Essential (primary) hypertension ms3 Followup: ms3 - With: Private Physician - When: 2 - 3 days - Reason: Recheck today's complaints Discharge Instructions: - Discharge Summary Sheet ms3 - Hypertension, Adult ms3 - Shortness of Breath, Adult ms3 Forms: - Work release form ap3 - Medication Reconciliation Form ms3 - Antibiotic Education ms3 - Prescription Opioid Use ms3 - Patient Portal Instructions ms3 - Leadership Thank You Letter ms3 Signatures: Dispatcher [employer] Silvano Frances, DO ms3 Jarrett Rankin, RN RN tm6
[2024-09-22 13:52] VITALS: BP 162/73; TEMP 98.6
[2024-09-22 13:55] VITALS: O2SAT 98
--- NOTE | 2024-09-24 11:32 | EKG ---
Test Date: 2024-09-22 Test Time: 12:59:17 Stock Taker: ALP MEASUREMENT RESULTS: Intervals: Rate: 69 IN: 148 QRSD: 90 QT: 406 QTc: 435 Barto: P: 75 IN: 148 QRS: 82 T: 81 INTERPRETIVE STATEMENTS: Normal sinus rhythm Septal infarct, age undetermined Abnormal ECG No previous ECG available for comparison Electronically Signed On 09-24-24 11:30:05 PASTING MACHINE OFFBEARER by Ben Alcocer
== END 2024-09-22 13:38 | disposition home or self-care (01) ==
LOC: ER 11:04
DX: R06.02 Shortness of breath (principal); I10 Essential (primary) hypertension; R06.00 Dyspnea, unspecified; E11.9 Type 2 diabetes mellitus without complications; F17.210 Nicotine dependence, cigarettes, uncomplicated
CPT/HCPCS: 36415; 71045; 80048; 83735; 83880; 84484; 85025; 85610; 93005; 99284